=== PATIENT | female | born 1990 | race Caucasian/White ===

== ENCOUNTER → 2017-10-22 | Outpatient (CLI) | payer BC ==
--- NOTE | 2017-10-22 14:26 | Diagnostic Imaging Report ---
INDICATION: survey. TECHNIQUE: Multiple real-time grayscale images were obtained over the gravid uterus. COMPARISON: None. FINDINGS: A single live intrauterine fetus is seen measuring 20 weeks 2 days by composite measurements. The fetus is in cephalic presentation. Amniotic fluid appeared normal. The placenta was posterior with no evidence of previa. heart rate is 155 beats per minute. Cervical length is 6.1 cm. survey showed no detectable abnormalities with normal appearing bladder, stomach, ventricles, three vessel cord, and spine. The kidneys and four-chamber heart and cord insertion were not well seen due to positioning. Maternal ovaries were not visualized. Biometrical measurements are as follows: Biparietal 4.5 cm, age 19 weeks 6 days. Head circumference 17.57 cm, age 20 weeks 1 days. Abdominal circumference 15.41 cm, age 20 weeks 5 days. Femur length 3.23 cm, age 20 weeks 1 days. Sonographic estimate age: 20 weeks 2 days. Sonographic estimated date of delivery: 03/09/2018. Estimated Weight: 345 gm (+/- 50 gm). LMP percentile: 46%. heart rate: 155 beats per minute. number: 1 of 1. IMPRESSION: Single live intrauterine fetus measuring 20 weeks 2 days in size as described above. There were no detectable abnormalities although some of the structures were not able to be seen as above. Consider followup as clinically warranted. Dictated by: Dictated on workstation # [id number]
== END ==
LOC: RAD 12:53
PROVIDERS: ATTEND Obstetrics & Gynecology
DX: Z34.92 Encounter for supervision of normal pregnancy, unspecified, second trimester (principal); Z3A.20 20 weeks gestation of pregnancy
CPT/HCPCS: 76805

== ENCOUNTER → 2017-12-18 | Outpatient (CLI) | payer BC ==
--- NOTE | 2017-12-18 10:54 | Diagnostic Imaging Report ---
INDICATION: Z34.90 care. TECHNIQUE: Multiple real-time grayscale images were obtained over the gravid uterus. COMPARISON: 10/22/2017 FINDINGS: Single live intrauterine is identified with a heart rate of 158 beats per minute. Poorly visualized anatomy on the prior examination is now identified and appears grossly normal. The fetus is cephalic. The placenta is posterior and has a normal appearance. The visualized cervix is closed. IMPRESSION: Normal-appearing anatomy. No anomalies identified. Dictated by: Dictated on workstation # [id number]
== END ==
LOC: RAD 09:47
PROVIDERS: ATTEND Nurse Practitioner
DX: Z34.83 Encounter for supervision of other normal pregnancy, third trimester (principal); Z3A.28 28 weeks gestation of pregnancy
CPT/HCPCS: 76816

== ENCOUNTER 2018-02-24 11:26 | Inpatient (IN) | payer BC ==
[2018-02-24] VITALS (8 sets, daily range): BP systolic 126–147; BP diastolic 80–93
[~2018-02-24] VITALS: Ht 160 cm; Wt 138.8 kg
[2018-02-24] MEDS ORDERED: PREN1TAB86 PO (11:45)
[2018-02-24] MEDS ORDERED: FERR-84 PO (11:46)
[2018-02-24 11:57] LABS: BASOPHILS % (AUTO) 0 % (0-10); EOSINOPHILS # (AUTO) 0.1 10^3/uL (0.0-0.3); EOSINOPHILS % (AUTO) 1 % (0-10); HEMATOCRIT 32 % (35-52); HEMOGLOBIN 10.3 G/DL (11.5-16.0); LYMPHOCYTES # (AUTO) 1.4 X 10^3 (1.0-4.0); LYMPHOCYTES % (AUTO) 18 % (12-44); MEAN CORPUSCULAR HEMOGLOBIN 24 PG (25-34); MEAN CORPUSCULAR HGB CONC 32 G/DL (32-36); MEAN CORPUSCULAR VOLUME 74 FL (80-99); MEAN PLATELET VOLUME 10.5 FL (7.4-10.4); MONOCYTES # (AUTO) 0.5 X 10^3 (0.0-1.0); MONOCYTES % (AUTO) 6 % (0-12); NEUTROPHILS % (AUTO) 75 % (42-75); PLATELET COUNT 417 10^3/uL (130-400); RED BLOOD COUNT 4.36 10^6/uL (4.35-5.85); RED CELL DISTRIBUTION WIDTH 15.7 % (10.0-14.5)
[2018-02-24 12:18] LABS: ALANINE AMINOTRANSFERASE 13 U/L (0-55); ALBUMIN 3.2 GM/DL (3.2-4.5); ALKALINE PHOSPHATASE 127 U/L (40-136); BILIRUBIN,TOTAL 0.3 MG/DL (0.1-1.0); BUN/CREATININE RATIO 10; CALCIUM 9.2 MG/DL (8.5-10.1); CARBON DIOXIDE 21 MMOL/L (21-32); CHLORIDE 107 MMOL/L (98-107); CREATININE SERUM 0.71 MG/DL (0.60-1.30); GFR ESTIMATED > 60; GLUCOSE 90 MG/DL (70-105); POTASSIUM 4.1 MMOL/L (3.6-5.0); SODIUM 136 MMOL/L (135-145); TOTAL PROTEIN 6.5 GM/DL (6.4-8.2); URIC ACID 6.3 MG/DL (2.6-7.2)
[2018-02-24] MEDS ORDERED: ceFAZolin 2 GM IV Premixed 50 ML IV SCH (13:14)
[2018-02-24] MEDS ORDERED: D5 LR IV SOLUTION 1,000 ML IV SCH ×2 (13:14→15:56)
[2018-02-24] MEDS ORDERED: CATHETER FLUSH 10 ML SYR IV PRN ×2 (13:30)
[2018-02-24] MEDS ORDERED: CITRIC ACID/SOB CIT (BICITRA) 30 ML UDC PO ONE (13:30)
[2018-02-24] MEDS ORDERED: FAMOTIDINE 20MG/2ML IV (PEPCID) IV ONE (13:30)
[2018-02-24] MEDS ORDERED: METOCLOPRAMIDE INJ 10 MG/2 ML (REGLAN) IV ONE (13:30)
--- OUTSIDE RECORDS SUMMARY | 2018-02-24 13:36 | XMS REPORT | Continuity of Care Document ---
Author Author [facility] Address Unknown Phone Unavailable Allergies Active Description Code Type Severity Reaction Onset Reported/Identified Relationship to Patient Clinical Status Yes Penicillins [id number] Drug Allergy Moderate N/A Yes PENICILLINS N/A N/A 11/18/2014 Medications Medication Packaging Start Date Stop Date Route Dosage Sig FLUNISOLIDE 09/29/2014 05/24/2015 Nasal 25 MCG/ACT EACH NOSTRIL DAILY FLUNISOLIDE 05/24/2015 Nasal 25 MCG/ACT EACH NOSTRIL DAILY LACTATED RINGERS Solution 201504/23/2016 Intravenous 1EA CONT&0600 Oxytocin 30Units/NS500 ININF BAG 03/26/2016 Intravenous 1EA CONT&0600 Diinoprostone VAG INSERT INSERT 04/26/2016 Vaginal 10MG ONETIME&2130 LACTATED RINGERS Solution 201504/02/2016 Intravenous 1EA CONT&0500 Oxytocin 30Units/NS500 ININF BAG 03/30/2016 Intravenous 1EA CONT&0500 LACTATED RINGERS Solution 201504/28/2016 Intravenous 1EA CONT&0621 Acetamin/Cod Tab Tab 03/29/2016 04/28/2016 Oral 1TAB PRN Q 4 H& Naproxen TAB Tablet 03/29/2016 04/28/2016 Oral 500MG PRNX1 & Mag Al Plus UD Liquid 03/29/2016 04/28/2016 Oral 1DOSE PRN Q 2 H& Calcium Carb Roll of 8 Tab 201504/29/2016 Oral 750MG PRN Q 2 H& Mag Al Plus UD Liquid 03/30/2016 04/29/2016 Oral 1DOSE PRN Q 2 H& Problems Date Dx Coded Attending Type Code Diagnosis Diagnosed By 06/11/2015 Diana Pfeiffer V72.31 Routine gynecological examination 11/12/2015 Diana Pfeiffer V22.1 , routine visit 02/20/2016 Diana Pfeiffer 642.43 Mild pre-eclampsia, antepartum condition or complication 04/03/2016 Diana Pfeiffer F V24.2 follow-up visit 12/14/2016 F J01.10 Acute frontal sinusitis, unspecified 12/14/2016 F R19.7 Diarrhea, unspecified 10/28/2017 MACHADOTOMMY Peters DOA Liv Ot Z34.92 ENCNTR FOR SUPRVSN OF NORMAL PREG, UNSP, 10/28/2017 MACHADO DO PRIMO C Ot Z3A.20 20 WEEKS GESTATION OF 11/05/2017 MACHADO DO PRIMO C Ot Z34.92 ENCNTR FOR SUPRVSN OF NORMAL PREG, UNSP, 11/05/2017 MACHADO DO PRIMO C Ot Z3A.20 20 WEEKS GESTATION OF 12/21/2017 ALEX HINOJOSA APRICOT PACKER Ot Z34.83 ENCOUNTER FOR SUPRVSN OF NORMAL PREGNANC 12/21/2017 ALEX HINOJOSA APRICOT PACKER Ot Z3A.28 28 WEEKS GESTATION OF 12/30/2017 ALEX HINOJOSA APRICOT PACKER Ot Z34.83 ENCOUNTER FOR SUPRVSN OF NORMAL PREGNANC 12/30/2017 ALEX HINOJOSA APRICOT PACKER Ot Z3A.28 28 WEEKS GESTATION OF Procedures Code Description [place] [address] Preventive medicine, established patient, age 18-39 years 2014 OBCOMP OB Complaint 11/12/2015 83511 Office/outpatient visit; established patient, level 3 11/12/2015 OBCOMP OB Complaint 12/14/2015 OBCOMP OB Complaint 12/31/2015 OBCOMP OB Complaint 01/29/2016 OBCOMP OB Complaint 02/20/2016 OBCOMP OB Complaint 02/28/2016 OBCOMP OB Complaint 03/14/2016 OBCOMP OB Complaint 03/21/2016 Results Test Result Range OBSTETRIC PANEL - 10/23/15 08:30 VENIPUNCTURE DONE OBSTETRIC PANEL done done OB CBC - 10/23/15 08:30 HEMATOCRIT 35 % 36 - 48 HEMOGLOBIN 11.5 G/DL 11.6 - 15.6 MCH 25.6 PG/ML 26.0 - 34.0 MCHC 33.0 % 30.0 - 36.0 MCV 77.7 FL 80.0 - 100.0 MPV 10.2 FL 9.5 - 10.5 PLATELET AUTOMATED 289 1000/UL 130 - 400 RBC-CBC 4.49 [id number]/UL 3.80 - 5.50 RDW-CV 15.5 % 11.7 - 14.3 WBC-CBC 7.4 1000/UL 4.0 - 11.0 OB ANTIBODY SCREEN - 10/23/15 08:30 OB ANTIBODY SCREEN NEGATIVE NEGATIVE OB ABO - 10/23/15 08:30 OB ABO A OB RH - 10/23/15 08:30 OB RH POSITIVE OB RUBELLA - 10/23/15 08:30 OB RUBELLA POSITIVE IMMUNE AFP TETRA PROFILE - 10/23/15 08:30 [place] 1 [place] [address] DSR (SECOND TRIMESTER) 1 [place] [address] DSR (BY AGE) 1 IN 911 T18 RISK Not increased T18 (BY AGE) 1:3551 INTERPRETATION Comment COMMENTS: Comment RESULTS Report TEST RESULTS *Screen Negative* GEST. AGE ON COLLECTION DATE 17.1 WEEKS GESTAT. AGE BASED ON CARLOS MATERNAL [age] CARLOS 27.2 YEARS RACE WEIGHT 278 lbs INSULIN DEP DIABETES No MULTIPLE GESTATION No AFP VALUE 27.7 ng/mL AFP MoM 1.03 hCG VALUE 23127 mIU/mL hCG MoM 0.53 uE3 VALUE 1.22 ng/mL uE3 MoM 1.25 GENE VALUE 106.17 pg/mL GENE MoM 0.83 HEPATITIS B SURFACE ANTIGEN - 10/23/15 08:30 HEPATITIS B SURFACE ANTIGEN Negative Negative RPR - 10/23/15 08:30 RPR Non Reactive Non Reactive HIV-1, HIV-2 - 119628 - 10/23/15 08:30 HIV 1/0/2 INDEX VALUE ABS <1.00 <1.00 HIV 1/0/2 QUAL ABS Non Reactive Non Reactive HEMOGLOBIN , HEMATOCRIT - 12/31/15 07:50 HEMATOCRIT 33.5 % 36 - 48 HEMOGLOBIN 10.9 G/DL 11.6 - 15.6 GLUCOSE - 12/31/15 07:50 GLUCOSE 96 MG/DL 70 - 106 ANTIBODY SCREEN GEL - 12/31/15 07:50 ANTIBODY SCREEN GEL NEGATIVE NEGATIVE GLUCOSE (S) - 12/31/15 10:25 GLUCOSE (S) 95 MG/DL 70 - 106 STREP B SCREEN - 03/06/16 10:20 STREP B SCREEN Negative Negative URINALYSIS - 03/24/16 06:58 NITRITE Negative NEGATIVE UROBILINOGEN 0.2 E.U./dL EU/DL 0.2 COLOR UA Light yellow YELLOW CLARITY UA Clear CLEAR GLUCOSE, UR Negative NEGATIVE BILIRUBIN, UR Negative NEGATIVE KETONES UR Negative NEGATIVE SPECIFIC GRAVITY 1.010 SG 1.018 - 1.035 BLOOD, UR Negative NEGATIVE PH, UR 6.0 PH 5.0 - 6.0 PROTEIN, UR Negative NEGATIVE LEUKOCYTES ESTERASE Negative NEGATIVE WBC, UR NONE SEEN /HPF NONE SEEN RBC, UR 0-3 /HPF NONE SEEN EPITHELIAL CELLS 11-30 /HPF NONE SEEN BACTERIA UR 1+ /HPF NONE SEEN MUCOUS UR NONE SEEN /HPF NONE SEEN CASTS UR NONE SEEN NONE SEEN CRYSTALS UR NONE SEEN NONE SEEN CBC - 03/24/16 07:20 HEMATOCRIT 32.7 % 36 - 48 HEMOGLOBIN 10.6 G/DL 11.6 - 15.6 MCH 24.3 PG/ML 26.0 - 34.0 MCHC 32.4 % 30.0 - 36.0 MCV 74.8 FL 80.0 - 100.0 MPV 10.1 FL 9.5 - 10.5 PLATELET AUTOMATED 386 1000/uL 130 - 400 RBC-CBC 4.37 [id number]/UL 3.80 - 5.50 RDW-CV 15.3 % 11.7 - 14.3 VENIPUNCTURE DONE WBC-CBC 8.41 1000/uL 4.0 - 11.0 URINALYSIS - 03/27/16 21:30 NITRITE NEGATIVE NEGATIVE UROBILINOGEN 0.2 EU/DL 0.2 COLOR UA YELLOW YELLOW CLARITY UA CLEAR CLEAR GLUCOSE, UR NEGATIVE NEGATIVE BILIRUBIN, UR NEGATIVE NEGATIVE KETONES UR NEGATIVE NEGATIVE SPECIFIC GRAVITY 1.010 SG 1.018 - 1.035 BLOOD, UR NEGATIVE NEGATIVE PH, UR 7.0 PH 5.0 - 6.0 PROTEIN, UR NEGATIVE NEGATIVE LEUKOCYTES ESTERASE NEGATIVE NEGATIVE WBC, UR NONE SEEN /HPF NONE SEEN RBC, UR NONE SEEN /HPF NONE SEEN EPITHELIAL CELLS 31-75 /HPF NONE SEEN BACTERIA UR NONE SEEN /HPF NONE SEEN MUCOUS UR NONE SEEN /HPF NONE SEEN CASTS UR NONE SEEN NONE SEEN CRYSTALS UR NONE SEEN NONE SEEN CBC - 03/28/16 07:59 HEMATOCRIT 34.2 % 36 - 48 HEMOGLOBIN 10.9 G/DL 11.6 - 15.6 MCH 24.0 PG/ML 26.0 - 34.0 MCHC 31.9 % 30.0 - 36.0 MCV 75.2 FL 80.0 - 100.0 MPV 10.1 FL 9.5 - 10.5 PLATELET AUTOMATED 374 1000/uL 130 - 400 RBC-CBC 4.55 [id number]/UL 3.80 - 5.50 RDW-CV 15.6 % 11.7 - 14.3 VENIPUNCTURE DONE WBC-CBC 8.87 1000/uL 4.0 - 11.0 PLATELET AUTOMATED - 03/28/16 21:45 PLATELET AUTOMATED 390 1000/uL 130 - 400 VENIPUNCTURE DONE APTT - 03/28/16 21:45 APTT 26.1 SEC 22 - 31 PROTIME W/INR - 03/28/16 21:45 INR .91 . 0.9 - 1.1 PROTIME 9.3 SEC 9.3 - 11.3 HEMOGLOBIN , HEMATOCRIT - 03/29/16 11:37 HEMATOCRIT 29.4 % 36 - 48 HEMOGLOBIN 9.5 G/DL 11.6 - 15.6 VENIPUNCTURE DONE URINALYSIS - 03/29/16 20:00 NITRITE Negative NEGATIVE UROBILINOGEN 0.2 E.U./dL EU/DL 0.2 COLOR UA Light yellow YELLOW CLARITY UA Clear CLEAR GLUCOSE, UR Negative NEGATIVE BILIRUBIN, UR Negative NEGATIVE KETONES UR Negative NEGATIVE SPECIFIC GRAVITY 1.004 SG 1.018 - 1.035 BLOOD, UR 3+ NEGATIVE PH, UR 5.5 PH 5.0 - 6.0 PROTEIN, UR 1+ NEGATIVE LEUKOCYTES ESTERASE 1+ NEGATIVE WBC, UR 0-5 /HPF NONE SEEN RBC, UR 4-10 /HPF NONE SEEN EPITHELIAL CELLS 0-2 /HPF NONE SEEN BACTERIA UR TRACE /HPF NONE SEEN MUCOUS UR LIGHT /HPF NONE SEEN CASTS UR NONE SEEN NONE SEEN CRYSTALS UR NONE SEEN NONE SEEN HEMOGLOBIN , HEMATOCRIT - 03/30/16 07:41 HEMATOCRIT 27.8 % 36 - 48 HEMOGLOBIN 8.8 G/DL 11.6 - 15.6 VENIPUNCTURE DONE Encounters ACCT No. Visit Date/Time Discharge Status Pt. Type Provider Facility Loc./Unit Complaint [id number] 09/17/2015 14:21:00 09/17/2015 23:59:59 [facility] Outpatient [facility] [id number] 09/11/2014 11:04:00 09/11/2014 23:59:59 [facility] Outpatient [facility] [id number] 03/27/2016 21:00:00 03/30/2016 16:30:00 DIS Inpatient DIANA PFEIFFER [facility] OB [id number] 03/24/2016 06:55:00 03/24/2016 20:50:00 DIS Inpatient MARGARETTE [facility] OB [id number] 03/21/2016 16:23:00 03/21/2016 17:05:00 [id number] 03/13/2016 09:15:00 03/13/2016 10:00:00 [id number] 03/06/2016 09:45:00 03/06/2016 11:00:00 [id number] 12/31/2015 07:37:00 12/31/2015 10:37:00 DIS Outpatient MARGARETTE [facility] LAB [id number] 12/14/2015 09:30:00 12/14/2015 12:30:00 [id number]/23/2015 08:18:00 10/23/2015 11:18:00 DIS Outpatient MARGARETTE [facility] LAB [id number] 10/12/2015 12:30:00 10/12/2015 15:30:00 [id number] 12/14/2016 15:54:00 12/14/2016 23:59:59 CLS Outpatient [facility] [id number] 12/14/2016 17:12:00 Document Registration [id number] 04/03/2016 12:48:37 04/03/2016 14:29:56 DIS Outpatient Diana Pfeiffer [facility] [id number] 09/28/2015 16:21:59 09/28/2015 16:21:59 DIS Outpatient [id number] 12/18/2017 09:47:00 12/18/2017 23:59:59 CLS Outpatient ALEX HINOJOSA [facility] RAD Z34.90 CARE [id number] 10/22/2017 12:53:00 10/22/2017 23:59:59 CLS Outpatient PRIMO MACHADO DO [facility] RAD SUVEY [id number] 03/02/2018 08:00:00 PEN Preadmit PRIMO MACHADO DO PREVIOUS
[2018-02-24] MEDS ORDERED: LACTATED RINGERS 1,000 ML IV PRN ×2 (13:52)
[2018-02-24] MEDS ORDERED: CATHETER FLUSH 10 ML SYR IV SCH ×2 (14:00→22:00)
[2018-02-24] MEDS ORDERED: KETAMINE HCL 100 MG/ML 5 ML VIAL ONE (14:12)
[2018-02-24] MEDS ORDERED: ONDANSETRON 4 MG/2 ML (SDV) Z0FRAN ONE (14:12)
[2018-02-24] MEDS ORDERED: OXYTOCIN/NORMAL SALINE 1,000 ML IV ONE (14:12)
[2018-02-24] MEDS ORDERED: fentaNYL INJECTION 100 MCG/2 ML AMP ONE (14:13)
[2018-02-24] MEDS ORDERED: raNItidine 50 MG/2 ML INJ (ZANTAC) IV ONE (14:15)
--- NOTE | 2018-02-24 15:02 | Progress Note-Pre Operative ---
Pre-Operative Progress Note H&P Reviewed The H&P was reviewed, patient examined and no changes noted. Laboratory Tests Test 02/24/18 10:00 02/24/18 11:45 Range/Units Urine Protein 28 H 6-12 MG/DL Urine Creatinine 119 30-125 MG/DL Urine Protein/Creatinine Ratio 0.24 White Blood Count 8.0 4.3-11.0 10^3/uL Red Blood Count 4.36 4.35-5.85 10^6/uL Hemoglobin 10.3 L 11.5-16.0 G/DL Hematocrit 32 L 35-52 % Mean Corpuscular Volume 74 L 80-99 FL Mean Corpuscular Hemoglobin 24 L 25-34 PG Mean Corpuscular Hemoglobin Concent 32 32-36 G/DL Red Cell Distribution Width 15.7 H 10.0-14.5 % Platelet Count 417 H 130-400 10^3/uL Mean Platelet Volume 10.5 H 7.4-10.4 FL Neutrophils (%) (Auto) 75 42-75 % Lymphocytes (%) (Auto) 18 12-44 % Monocytes (%) (Auto) 6 0-12 % Eosinophils (%) (Auto) 1 0-10 % Basophils (%) (Auto) 0 0-10 % Neutrophils # (Auto) 6.0 1.8-7.8 X 10^3 Lymphocytes # (Auto) 1.4 1.0-4.0 X 10^3 Monocytes # (Auto) 0.5 0.0-1.0 X 10^3 Eosinophils # (Auto) 0.1 0.0-0.3 10^3/uL Basophils # (Auto) 0.0 0.0-0.1 10^3/uL Sodium Level 136 135-145 MMOL/L Potassium Level 4.1 3.6-5.0 MMOL/L Chloride Level 107 98-107 MMOL/L Carbon Dioxide Level 21 21-32 MMOL/L Anion Gap 8 5-14 MMOL/L Blood Urea Nitrogen 7 7-18 MG/DL Creatinine 0.71 0.60-1.30 MG/DL Estimat Glomerular Filtration Rate > 60 BUN/Creatinine Ratio 10 Glucose Level 90 70-105 MG/DL Uric Acid 6.3 2.6-7.2 MG/DL Calcium Level 9.2 8.5-10.1 MG/DL Total Bilirubin 0.3 0.1-1.0 MG/DL Aspartate Amino Transf (AST/SGOT) 13 5-34 U/L Alanine Aminotransferase (ALT/SGPT) 13 0-55 U/L Alkaline Phosphatase 127 40-136 U/L Lactate Dehydrogenase 156 125-220 U/L Total Protein 6.5 6.4-8.2 GM/DL Albumin 3.2 3.2-4.5 GM/DL 02/24/18 02/24/18 02/24/18 02/24/18 11:07 11:11 11:47 12:12 Temp 98.5 Pulse 88 93 81 Resp 20 18 18 B/P (MAP) 139/93 (108) 137/82 (100) 133/84 (100) 143/85 (104) Pulse Ox 98 O2 Delivery Room Air Room Air Room Air 02/24/18 12:45 Pulse 90 Resp 18 B/P (MAP) 138/83 (101) O2 Delivery Room Air Date Seen by Provider: Feb 24, 2018 Time Seen by Provider: 11:00 Date H&P Reviewed: Feb 24, 2018 Time H&P Reviewed: 14:30 Pre-Operative Diagnosis: gestational hypertension, previous section, headache. PRIMO MACHADO DO Feb 24, 2018 15:02
[2018-02-24] MEDS ORDERED: KETOROLAC 30 MG/ML VIAL ONE ×2 (15:45→15:46)
[2018-02-24] MEDS ORDERED: OXYTOCIN/NORMAL SALINE 500 ML IV SCH (15:56)
--- NOTE | 2018-02-24 15:56 | Cesarean Section Operative ---
Procedure Procedure Note Pre-operative Diagnosis: Jazmine Menjivar is a 28 /Para 2 / 1,Gestational Age 38 1/7 weeks, gestational hypertension, headache, previous section Post-operative Diagnosis: same Procedure: Repeat low transverse section Physician: PRIMO MACHADO Estimated blood loss: 600 mL Disposition: stable Findings: Viable male infant, Apgars 8/9, weight 8#1 oz, intact placenta, 3vc, normal appearing uterus, tubes, and ovaries. Indications:Jazmine Menjivar is a 28 /Para 2 / 1,Gestational Age 38 1/7 weeks, gestational hypertension, headache, previous section. Procedure Details: The patient was seen in pre-op and the procedure was discussed with the patient in full, including the risks, benefits, and alternatives. All questions were answered. The patient was taken to the operating room and a time out was performed, verifying patient and procedure. After spinal anesthesia was placed by our anesthesia colleagues, the patient was placed in the dorsal supine with leftward tilt for uterine displacement.~ Her abdomen was then prepped and draped in the typical sterile fashion. A Pfannenstiel skin incision was made using a scalpel and carried down through the underlying fascia. The fascia was incised in the midline and tented up using Cristiana clamps. On both the inferior and superior fascia side the rectus muscle was dissected off bluntly and sharply using Grady scissors. The peritoneum was identified and entered bluntly in the midline. This was then stretched laterally using manual strength. After entering the abdominal cavity and noting omental adhesions to the anterior abdominal wall, (not interfering with delivery) an extra large Armando retractor was placed and the lower uterine segment was visualized. A scalpel was utilized to make a low transverse uterine incision. Amniotomy was performed with an Allis clamp with return of clear fluid. The infant's head was grasped and brought to the level of the incision and delivered with assistance of the silastic suction. Fundal pressure was applied and infant was delivered without difficulty. Mouth and nares were suctioned with bulb suction. After the umbilical cord was clamped and cut, the was handed off to the pediatric staff. A sample of cord blood was then obtained. The placenta was delivered intact via uterine massage. The uterus was cleared of all clots and debris. The uterine incision was closed using 0 Vicryl in a running locked fashion. A second imbricated layer was placed using 0 Vicryl in a running fashion as well. The bilateral tubes and ovaries appeared normal. The abdominal gutters were cleared of all clots and debris. A final check of the uterine incision showed it to be hemostatic. I now took down the omental adhesions that were adherent to the abdominal wall. This interfered with closure. There was also a hole through the omentum due to the adhesions, and once these were taken down, there was no longer a hole. The peritoneum was closed using 3-0 Vicryl in a running fashion. The fascia was closed with 0 Vicryl in a running fashion. The subcutaneous space was hemostatic, and irrigated. The subcutaneous space was closed with 3-0 Vicryl in several single interrupted stitches. The skin was then closed using 4-0 Monocryl in a running subcuticular fashion. The skin edges were reapproximated together and were hemostatic. A pressure dressing was applied. All sponge, lap and needle counts were correct at the end of the procedure per nursing. Vitals - Labs Vital Signs - I&O Vital Signs Date Time Temp Pulse Resp B/P (MAP) Pulse Ox O2 Delivery O2 Flow Rate FiO2 02/24/18 12:45 90 18 138/83 (101) Room Air 02/24/18 12:12 81 18 143/85 (104) Room Air 02/24/18 11:47 93 18 133/84 (100) Room Air 02/24/18 11:11 137/82 (100) 02/24/18 11:07 98.5 88 20 139/93 (108) 98 Room Air Labs Laboratory Tests 02/24/18 10:00: Urine Protein 28H, Urine Creatinine 119, Urine Protein/Creatinine Ratio 0.24 02/24/18 11:45: White Blood Count 8.0, Red Blood Count 4.36, Hemoglobin 10.3L, Hematocrit 32L, Mean Corpuscular Volume 74L, Mean Corpuscular Hemoglobin 24L, Mean Corpuscular Hemoglobin Concent 32, Red Cell Distribution Width 15.7H, Platelet Count 417H, Mean Platelet Volume 10.5H, Neutrophils (%) (Auto) 75, Lymphocytes (%) (Auto) 18 , Monocytes (%) (Auto) 6, Eosinophils (%) (Auto) 1, Basophils (%) (Auto) 0, Neutrophils # (Auto) 6.0, Lymphocytes # (Auto) 1.4, Monocytes # (Auto) 0.5, Eosinophils # (Auto) 0.1, Basophils # (Auto) 0.0, Sodium Level 136, Potassium Level 4.1, Chloride Level 107, Carbon Dioxide Level 21, Anion Gap 8, Blood Urea Nitrogen 7, Creatinine 0.71, Estimat Glomerular Filtration Rate > 60, BUN/ Creatinine Ratio 10, Glucose Level 90, Uric Acid 6.3, Calcium Level 9.2, Total Bilirubin 0.3, Aspartate Amino Transf (AST/SGOT) 13, Alanine Aminotransferase ( ALT/SGPT) 13, Alkaline Phosphatase 127, Lactate Dehydrogenase 156, Total Protein 6.5, Albumin 3.2 PRIMO MACHADO DO Feb 24, 2018 15:56
[2018-02-24] MEDS ORDERED: TETANUS,DIPTH,PERTUSS P/F (BOOSTRIX) 0.5 ML VIAL IM SCH (16:00)
[2018-02-24] MEDS ORDERED: HYDROmorphone (DILAUDID) 2 MG/ML VIAL IVP PRN (16:00)
[2018-02-24] MEDS ORDERED: MEASLES,MUMPS,RUBELLA 1 EA INJ SC SCH (16:00)
[2018-02-24] MEDS: DOCUSATE SODIUM 100 MG (COLACE) CAP PO SCH (21:25)
[2018-02-24] MEDS: KETOROLAC 30 MG/ML VIAL IVP SCH (21:25)
[2018-02-24] MEDS ORDERED: EPIDURAL (SUFENTA 0.6MCG/ML BUPIVA 0.125%) 100 ML BAG EPI PRN (23:15)
[2018-02-24] MEDS ORDERED: ONDANSETRON 4 MG/2 ML (SDV) Z0FRAN IV PRN (23:15)
[2018-02-24] MEDS ORDERED: NALOXONE 0.4 MG/ML 1 ML (NARCAN) VIAL IV PRN (23:15)
[2018-02-24] MEDS ORDERED: LACTATED RINGERS 1,000 ML IV ONE ×2 (23:15)
[2018-02-25] MEDS: HYDROcodone/APAP 5 MG/325 MG (LORTAB) TAB PO PRN ×3 (01:17→23:11)
[2018-02-25 02:08] VITALS: BP 124/77
[2018-02-25 05:46] LABS: BASOPHILS % (AUTO) 0 % (0-10); EOSINOPHILS % (AUTO) 0 % (0-10); HEMATOCRIT 26 % (35-52); HEMOGLOBIN 8.2 G/DL (11.5-16.0); LYMPHOCYTES # (AUTO) 1.8 X 10^3 (1.0-4.0); LYMPHOCYTES % (AUTO) 22 % (12-44); MEAN CORPUSCULAR HEMOGLOBIN 23 PG (25-34); MEAN CORPUSCULAR HGB CONC 31 G/DL (32-36); MEAN CORPUSCULAR VOLUME 75 FL (80-99); MEAN PLATELET VOLUME 10.7 FL (7.4-10.4); MONOCYTES # (AUTO) 0.5 X 10^3 (0.0-1.0); MONOCYTES % (AUTO) 6 % (0-12); NEUTROPHILS % (AUTO) 72 % (42-75); PLATELET COUNT 361 10^3/uL (130-400); RED BLOOD COUNT 3.51 10^6/uL (4.35-5.85); RED CELL DISTRIBUTION WIDTH 15.2 % (10.0-14.5); WHITE BLOOD COUNT 8.4 10^3/uL (4.3-11.0)
--- NOTE | 2018-02-25 08:45 | Postpartum Progress Note ---
Post Op Post-operative Day #1 s/p RLTCS, gestational hypertension Subjective: Patient is without complaints. Ambulating, voiding after shelton removed. Tolerating a regular diet without nausea or vomiting. Normal lochia. Pain is well controlled with oral pain medications. Passing flatus. breast feeding. Objective: Laboratory Tests Test 02/24/18 10:00 02/24/18 11:45 02/25/18 05:10 Range/Units Urine Protein 28 H 6-12 MG/DL Urine Creatinine 119 30-125 MG/DL Urine Protein/Creatinine Ratio 0.24 White Blood Count 8.0 8.4 4.3-11.0 10^3/uL Red Blood Count 4.36 3.51 L 4.35-5.85 10^6/uL Hemoglobin 10.3 L 8.2 #L 11.5-16.0 G/DL Hematocrit 32 L 26 L 35-52 % Mean Corpuscular Volume 74 L 75 L 80-99 FL Mean Corpuscular Hemoglobin 24 L 23 L 25-34 PG Mean Corpuscular Hemoglobin Concent 32 31 L 32-36 G/DL Red Cell Distribution Width 15.7 H 15.2 H 10.0-14.5 % Platelet Count 417 H 361 130-400 10^3/uL Mean Platelet Volume 10.5 H 10.7 H 7.4-10.4 FL Neutrophils (%) (Auto) 75 72 42-75 % Lymphocytes (%) (Auto) 18 22 12-44 % Monocytes (%) (Auto) 6 6 0-12 % Eosinophils (%) (Auto) 1 0 0-10 % Basophils (%) (Auto) 0 0 0-10 % Neutrophils # (Auto) 6.0 6.0 1.8-7.8 X 10^3 Lymphocytes # (Auto) 1.4 1.8 1.0-4.0 X 10^3 Monocytes # (Auto) 0.5 0.5 0.0-1.0 X 10^3 Eosinophils # (Auto) 0.1 0.0 0.0-0.3 10^3/uL Basophils # (Auto) 0.0 0.0 0.0-0.1 10^3/uL Sodium Level 136 135-145 MMOL/L Potassium Level 4.1 3.6-5.0 MMOL/L Chloride Level 107 98-107 MMOL/L Carbon Dioxide Level 21 21-32 MMOL/L Anion Gap 8 5-14 MMOL/L Blood Urea Nitrogen 7 7-18 MG/DL Creatinine 0.71 0.60-1.30 MG/DL Estimat Glomerular Filtration Rate > 60 BUN/Creatinine Ratio 10 Glucose Level 90 70-105 MG/DL Uric Acid 6.3 2.6-7.2 MG/DL Calcium Level 9.2 8.5-10.1 MG/DL Total Bilirubin 0.3 0.1-1.0 MG/DL Aspartate Amino Transf (AST/SGOT) 13 5-34 U/L Alanine Aminotransferase (ALT/SGPT) 13 0-55 U/L Alkaline Phosphatase 127 40-136 U/L Lactate Dehydrogenase 156 125-220 U/L Total Protein 6.5 6.4-8.2 GM/DL Albumin 3.2 3.2-4.5 GM/DL 02/24/18 02/25/18 21:30 02:08 Temp 97.6 98.4 Pulse 94 98 Resp 18 18 B/P (MAP) 134/86 (102) 124/77 (93) Pulse Ox 97 97 O2 Delivery Room Air Room Air 02/25/18 00:00 Intake Total 2550 ml Output Total 1100 ml Balance 1450 ml Physical Exam: General - Alert and oriented, no apparent distress Abdomen - Soft, appropriately tender to palpation, non-distended, fundus firm at umbilicus Incision - clean, dry and intact; no erythema or induration, no drainage Extremities - no edema, negative Betty's bilaterally Assessment: 1. post-operative day # 1, status post RLTCS. Recovering well, hemodynamically stable 2. Gestational hypertension, labile blood pressures 3. Acute blood loss anemia Plan: Routine post-operative care. Encourage breast feeding. Encourage ambulation. VTE prophylaxis: SCDs. Ferrous sulfate supplementation. Plan for discharge Tomorrow or Thursday Vitals - Labs Vital Signs - I&O Vital Signs Date Time Temp Pulse Resp B/P (MAP) Pulse Ox O2 Delivery O2 Flow Rate FiO2 02/25/18 02:08 98.4 98 18 124/77 (93) 97 Room Air 02/24/18 21:30 97.6 94 18 134/86 (102) 97 Room Air 02/24/18 18:58 Room Air 02/24/18 18:00 97.9 95 20 126/80 (95) Room Air 02/24/18 17:15 99.2 90 18 147/90 (109) 99 Room Air 02/24/18 14:05 98.9 02/24/18 12:45 90 18 138/83 (101) Room Air 02/24/18 12:12 81 18 143/85 (104) Room Air 02/24/18 11:47 93 18 133/84 (100) Room Air 02/24/18 11:11 137/82 (100) 02/24/18 11:07 98.5 88 20 139/93 (108) 98 Room Air I & O 02/25/18 07:00 Intake Total 5550 ml Output Total 3050 ml Balance 2500 ml Labs Laboratory Tests 02/24/18 10:00: Urine Protein 28H, Urine Creatinine 119, Urine Protein/Creatinine Ratio 0.24 02/24/18 11:45: White Blood Count 8.0, Red Blood Count 4.36, Hemoglobin 10.3L, Hematocrit 32L, Mean Corpuscular Volume 74L, Mean Corpuscular Hemoglobin 24L, Mean Corpuscular Hemoglobin Concent 32, Red Cell Distribution Width 15.7H, Platelet Count 417H, Mean Platelet Volume 10.5H, Neutrophils (%) (Auto) 75, Lymphocytes (%) (Auto) 18 , Monocytes (%) (Auto) 6, Eosinophils (%) (Auto) 1, Basophils (%) (Auto) 0, Neutrophils # (Auto) 6.0, Lymphocytes # (Auto) 1.4, Monocytes # (Auto) 0.5, Eosinophils # (Auto) 0.1, Basophils # (Auto) 0.0, Sodium Level 136, Potassium Level 4.1, Chloride Level 107, Carbon Dioxide Level 21, Anion Gap 8, Blood Urea Nitrogen 7, Creatinine 0.71, Estimat Glomerular Filtration Rate > 60, BUN/ Creatinine Ratio 10, Glucose Level 90, Uric Acid 6.3, Calcium Level 9.2, Total Bilirubin 0.3, Aspartate Amino Transf (AST/SGOT) 13, Alanine Aminotransferase ( ALT/SGPT) 13, Alkaline Phosphatase 127, Lactate Dehydrogenase 156, Total Protein 6.5, Albumin 3.2 02/25/18 05:10: White Blood Count 8.4, Red Blood Count 3.51L, Hemoglobin 8.2#L, Hematocrit 26L, Mean Corpuscular Volume 75L, Mean Corpuscular Hemoglobin 23L, Mean Corpuscular Hemoglobin Concent 31L, Red Cell Distribution Width 15.2H, Platelet Count 361, Mean Platelet Volume 10.7H, Neutrophils (%) (Auto) 72, Lymphocytes (%) (Auto) 22 , Monocytes (%) (Auto) 6, Eosinophils (%) (Auto) 0, Basophils (%) (Auto) 0, Neutrophils # (Auto) 6.0, Lymphocytes # (Auto) 1.8, Monocytes # (Auto) 0.5, Eosinophils # (Auto) 0.0, Basophils # (Auto) 0.0 PRIMO MACHADO DO Feb 25, 2018 08:45
[2018-02-25] MEDS ORDERED: IBUP-1773 PO (08:47)
[2018-02-25] MEDS ORDERED: ACHD5005 PO (08:47)
[2018-02-25] MEDS ORDERED: DOCU100C37 PO (08:47)
--- NOTE | 2018-02-25 08:49 | Discharge Inst-Women's Service ---
Discharge Inst-Women's Serv Depart Medication/Instructions New, Converted or Re-Newed RX: RX on Chart Final Diagnosis gestational hypertension repeat section antepartum and acute blood loss anemia Repeat section Consults/Follow Up Additional Follow Up: Yes (1 week with Jenn for incision check; 6 week pp exam) Activity Activity: Activity as Tolerated Driving Instructions: No Driving for 1 Week NO SMOKING: NO SMOKING Nothing Inside Vagina: No Douching, No [place], No Tampons Diet Discharge Diet: No Restrictions Symptoms to Report to : Bleeding Excessive, Pain Increased, Fever Over 101 Degrees F, Vaginal Bleeding Increase, Cramps in Feet or Legs, Vaginal Discharge Foul For Any Problems or Questions: Contact Your Physician Skin/Wound Care Infection Signs and Symptoms: Increased Redness, Foul Odor of Wound, Increased Drainage, Skin Itchy or Has a Rash, Increased Swelling, Temperature Above 101 F Operative Area Clean and Dry: Keep Incision Clean/Dry Stitches/Anastasiia/Dermabond: Dermabond Bathing Instructions: PRIMO Rodriguez DO Feb 25, 2018 8:48 am
[2018-02-25] MEDS ORDERED: IBUPROFEN 600 MG (MOTRIN) TAB PO ONE (09:15)
[2018-02-25] MEDS: FERROUS SULF 325 MG (IRON) TAB PO SCH (09:22)
[2018-02-25] MEDS: DOCUSATE SODIUM 100 MG (COLACE) CAP PO SCH ×2 (09:22→20:25)
[2018-02-25] MEDS: IBUPROFEN 600 MG (MOTRIN) TAB PO SCH ×3 (09:23→23:47)
--- NOTE | 2018-02-25 11:36 | Anesthesia-Regional Post-Op ---
Regional Patient Condition Mental Status: Alert, Oriented x3 Circulation: Same as Pre-Op Headache: Absent Sensation: Full Recovery Motor Block: Absent Post Op Complications Complications None Follow Up Care/Instructions Patient Instructions None needed. Anesthesia/Patient Condition Patient is doing well, no complaints, stable vital signs, no apparent adverse anesthesia problems. No complications reported per nursing. RENARD BAUER CRNA Feb 25, 2018 11:36
[2018-02-25 14:10] VITALS: BP 130/77
[2018-02-25 20:15] VITALS: BP 121/74
[2018-02-25] MEDS: KETOROLAC 30 MG/ML VIAL IVP SCH (22:01)
[2018-02-26 02:00] VITALS: BP 133/79
[2018-02-26] MEDS: IBUPROFEN 600 MG (MOTRIN) TAB PO SCH ×2 (05:34→16:45)
[2018-02-26] MEDS: DOCUSATE SODIUM 100 MG (COLACE) CAP PO SCH (08:34)
[2018-02-26] MEDS: FERROUS SULF 325 MG (IRON) TAB PO SCH (08:34)
[2018-02-26 08:35] VITALS: BP 137/88
--- NOTE | 2018-02-26 13:07 | Postpartum Progress Note ---
Post Op Post-operative Day # 2 s/p RLCTS Subjective: Patient is without complaints. Ambulating, voiding after shelton removed. Tolerating a regular diet without nausea or vomiting. Normal lochia. Pain is well controlled with oral pain medications. Passing flatus. breast feeding. Objective: 02/26/18 02/26/18 02:00 08:35 Temp 97.8 98.3 Pulse 111 95 Resp 18 20 B/P (MAP) 133/79 (97) 137/88 (104) Pulse Ox 97 O2 Delivery Room Air Room Air Physical Exam: General - Alert and oriented, no apparent distress Abdomen - Soft, appropriately tender to palpation, non-distended, fundus firm at umbilicus Incision - clean, dry and intact; no erythema or induration, no drainage Extremities - no edema, negative Betty's bilaterally Assessment: [] post-operative day # [], status post []. Recovering well, hemodynamically stable Acute blood loss anemia [] Plan: Routine post-operative care. Encourage breast feeding. Encourage ambulation. VTE prophylaxis: SCDs. Ferrous sulfate supplementation. Plan for discharge [] Vitals - Labs Vital Signs - I&O Vital Signs Date Time Temp Pulse Resp B/P (MAP) Pulse Ox O2 Delivery O2 Flow Rate FiO2 02/26/18 08:35 98.3 95 20 137/88 (104) Room Air 02/26/18 02:00 97.8 111 18 133/79 (97) 97 Room Air 02/25/18 20:15 97.8 96 18 121/74 (90) 98 Room Air 02/25/18 14:10 97.6 96 17 130/77 (94) 97 Room Air I & O 02/26/18 06:59 Intake Total 1200 ml Output Total 1900 ml Balance -700 ml PRIMO MACHADO DO Feb 26, 2018 13:07
== END 2018-02-26 17:05 | disposition home or self-care (01) | DRG 765 ==
LOC: LDRP 11:26 → WSo 11:26 → LDRP 13:00 → WSo 13:00 → LDRP 17:26
PROVIDERS: ADMIT Obstetrics & Gynecology; ATTEND Obstetrics & Gynecology
PROC: 10D00Z1 Extraction of Products of Conception, Low, Open Approach (ICD-10-PCS; principal; 2018-02-24 15:02)
DX: O13.4 Gestational [pregnancy-induced] hypertension without significant proteinuria, complicating childbirth (principal); O34.211 Maternal care for low transverse scar from previous cesarean delivery; O75.89 Other specified complications of labor and delivery; R51 Headache; O90.81 Anemia of the puerperium; D62 Acute posthemorrhagic anemia; Z37.0 Single live birth; Z3A.38 38 weeks gestation of pregnancy
CPT/HCPCS: 36415; 80053; 82570; 83615; 84156; 84550; 85025; 86850; 86900; 86901; 94664; 99212

== ENCOUNTER 2019-03-19 21:49 | Emergency (ER) | payer BC ==
[~2019-03-19] VITALS: Ht 157.5 cm; Wt 145.1 kg
[~2019-03-19 21:49] MED LIST: ACHD5005 PO; DOCU100C37 PO; FERR-84 PO; IBUP-1773 PO; PREN1TAB86 PO
--- OUTSIDE RECORDS SUMMARY | 2019-03-19 21:55 | XMS REPORT | Continuity of Care Document ---
Author Organization Unknown Address Unknown Allergies Active Description Code Type Severity Reaction Onset Reported/Identified Relationship to Patient Clinical Status Yes Penicillins 9057752119 Drug Allergy Moderate N/A Yes PENICILLINS N/A N/A 11/18/2014 Yes pcn pcn Mild RASH 02/24/2018 Medications Medication Packaging Start Date Stop Date [...] V22.1 , routine visit 02/20/2016 Diana Pfeiffer F 642.43 Mild pre-eclampsia, antepartum condition or complication 04/03/2016 DavidDiana lee F V24.2 follow-up visit 12/14/2016 F J01.10 Acute frontal sinusitis, unspecified 12/14/2016 F R19.7 Diarrhea, unspecified 10/28/2017 PRIMO MACHADO DO Ot Z34.92 ENCNTR FOR SUPRVSN OF NORMAL PREG, UNSP, 10/28/2017 PRIMO MACHADO DO Ot Z3A.20 20 WEEKS GESTATION OF 11/05/2017 PRIMO MACHADO DO Ot Z34.92 ENCNTR FOR SUPRVSN OF NORMAL PREG, UNSP, 11/05/2017 PRIMO MACHADO DO Ot Z3A.20 20 WEEKS GESTATION OF 12/21/2017 ALEX HINOJOSA Ot Z34.83 ENCOUNTER FOR SUPRVSN OF NORMAL PREGNANC 12/21/2017 ALEX HINOJOSAP Ot Z3A.28 28 WEEKS GESTATION OF 12/30/2017 ALEX HINOJOSAP Ot Z34.83 ENCOUNTER FOR SUPRVSN OF NORMAL PREGNANC 12/30/2017 ALEX 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 Z3A.28 28 WEEKS GESTATION OF 02/26/2018 PRIMO MACHADO DO Ot D62 ACUTE POSTHEMORRHAGIC ANEMIA 02/26/2018 PRIMO MACHADO DO Ot O13.4 GESTATNL HTN WITHOUT SIGNIFICANT PROTEIN 02/26/2018 PRIMO MACHADO DO Ot O34.211 MATERN CARE FOR LOW TRANSVERSE SCAR FROM 02/26/2018 PRIMO MACHADO DO Ot O75.89 OTHER SPECIFIED COMPLICATIONS OF LABOR A 02/26/2018 PRIMO MACHADO DO Ot O90.81 ANEMIA OF THE PUERPERIUM 02/26/2018 PRIMO MACHADO DO Ot R51 HEADACHE 02/26/2018 PRIMO MACHADO DO Ot Z37.0 SINGLE LIVE 02/26/2018 PRIMO MACHADO DO Ot Z3A.38 38 WEEKS GESTATION OF Procedures Code Description [place] [address] Preventive medicine, established patient, age 18-39 years 2014 OBCOMP OB Complaint 11/12/2015 06596 Office/outpatient visit; established patient, level 3 11/12/2015 OBCOMP OB Complaint 12/14/2015 OBCOMP OB Complaint 12/31/2015 OBCOMP OB Complaint 01/29/2016 OBCOMP OB Complaint 02/20/2016 OBCOMP OB Complaint 02/28/2016 OBCOMP OB Complaint 03/14/2016 OBCOMP OB Complaint 03/21/2016 [id number] EXTRACTION OF POC, LOW CERVICAL, OPEN AP 02/24/2018 Results Test Result Range OBSTETRIC PANEL - [...] 289 1000/UL 130 - 400 RBC-CBC 4.49 [id number]/UL 3.80 - 5.50 RDW-CV 15.5 % 11.7 - 14.3 WBC-CBC 7.4 1000/UL 4.0 - 11.0 OB ANTIBODY SCREEN - 10/23/15 08:30 OB ANTIBODY SCREEN NEGATIVE NEGATIVE OB ABO - 10/23/15 08:30 OB ABO A OB RH - 10/23/15 08:30 OB RH POSITIVE OB RUBELLA - 10/23/15 08:30 OB RUBELLA POSITIVE IMMUNE AFP TETRA PROFILE - 10/23/15 08:30 OSBR RISK 1 [place] [address] DSR (SECOND TRIMESTER) 1 [place] [address] DSR (BY AGE) 1 IN 911 T18 RISK Not increased T18 (BY AGE) 1:3551 INTERPRETATION Comment COMMENTS: Comment RESULTS Report TEST RESULTS *Screen Negative* GEST. AGE ON COLLECTION DATE 17.1 WEEKS GESTAT. AGE BASED ON CARLOS MATERNAL [age] CARLOS 27[age]2 YEARS RACE WEIGHT 278 lbs INSULIN DEP DIABETES No MULTIPLE GESTATION No AFP VALUE 27.7 ng/mL AFP MoM 1.03 hCG VALUE 96715 mIU/mL hCG MoM 0.53 uE3 VALUE 1.22 ng/mL uE3 MoM 1.25 GENE VALUE 106.17 pg/mL GENE MoM 0.83 HEPATITIS B SURFACE ANTIGEN - 10/23/15 08:30 HEPATITIS B SURFACE ANTIGEN Negative Negative RPR - 10/23/15 08:30 RPR Non Reactive Non Reactive HIV-1, HIV-2 - 541677 - 10/23/15 08:30 HIV 1/0/2 INDEX VALUE [...] 386 1000/uL 130 - 400 RBC-CBC 4.37 9161625/UL 3.80 - 5.50 RDW-CV 15.3 % 11.7 [...] 374 1000/uL 130 - 400 RBC-CBC 4.55 4864144/UL 3.80 - 5.50 RDW-CV 15.6 % 11.7 [...] 8.8 G/DL 11.6 - 15.6 VENIPUNCTURE DONE Urine protein/creatinine mass ratio - 02/24/18 10:00 Urine protein measurement (mass/volume) 28 mg/dL 6-12 Urine creatinine measurement (mass/volume) 119 mg/dL 30- 125 Urine protein/creatinine mass ratio 0.24 NRG Complete blood count (CBC) with automated white blood cell (WBC) differential - 02/24/18 11:45 Blood leukocytes automated count (number/volume) 8.0 10*3/uL 4.3-11.0 Blood erythrocytes automated count (number/volume) 4.36 10*6/uL 4.35-5.85 Venous blood hemoglobin measurement (mass/volume) 10.3 g/dL 11.5-16.0 Blood hematocrit (volume fraction) 32 % 35-52 Automated erythrocyte mean corpuscular volume 74 [foz_us] 80-99 Automated erythrocyte mean corpuscular hemoglobin (mass per erythrocyte) 24 pg 25-34 Automated erythrocyte mean corpuscular hemoglobin concentration measurement ( mass/volume) 32 g/dL 32-36 Automated erythrocyte distribution width ratio 15.7 % 10.0-14.5 Automated blood platelet count (count/volume) 417 10*3/uL 130-400 Automated blood platelet mean volume measurement 10.5 [foz_us] 7.4-10.4 Automated blood neutrophils/100 leukocytes 75 % 42-75 Automated blood lymphocytes/100 leukocytes 18 % 12-44 Blood monocytes/100 leukocytes 6 % 0-12 Automated blood eosinophils/100 leukocytes 1 % 0-10 Automated blood basophils/100 leukocytes 0 % 0-10 Blood neutrophils automated count (number/volume) 6.0 10*3 1.8-7.8 Blood lymphocytes automated count (number/volume) 1.4 10*3 1.0-4.0 Blood monocytes automated count (number/volume) 0.5 10*3 0.0-1.0 Automated eosinophil count 0.1 10*3/uL 0.0-0.3 Automated blood basophil count (count/volume) 0.0 10*3/uL 0.0-0.1 Comprehensive metabolic panel - 02/24/18 11:45 Serum or plasma sodium measurement (moles/volume) 136 mmol/L 135-145 Serum or plasma potassium measurement (moles/volume) 4.1 mmol/L 3.6-5.0 Serum or plasma chloride measurement (moles/volume) 107 mmol/L 98-107 Carbon dioxide 21 mmol/L 21-32 Serum or plasma anion gap determination (moles/volume) 8 mmol/L 5-14 Serum or plasma urea nitrogen measurement (mass/volume) 7 mg/dL 7-18 Serum or plasma creatinine measurement (mass/volume) 0.71 mg/dL 0.60-1.30 Serum or plasma urea nitrogen/creatinine mass ratio 10 NRG Serum or plasma creatinine measurement with calculation of estimated glomerular filtration rate > NRG Serum or plasma glucose measurement (mass/volume) 90 mg/dL 70-105 Serum or plasma calcium measurement (mass/volume) 9.2 mg/dL 8.5-10.1 Serum or plasma total bilirubin measurement (mass/volume) 0.3 mg/dL 0.1-1.0 Serum or plasma alkaline phosphatase measurement (enzymatic activity/volume) 127 U/L 40-136 Serum or plasma aspartate aminotransferase measurement (enzymatic activity/ volume) 13 U/L 5-34 Serum or plasma alanine aminotransferase measurement (enzymatic activity/volume ) 13 U/L 0-55 Serum or plasma protein measurement (mass/volume) 6.5 g/dL 6.4-8.2 Serum or plasma albumin measurement (mass/volume) 3.2 g/dL 3.2-4.5 Serum or plasma uric acid measurement (mass/volume) - 02/24/18 11:45 Serum or plasma uric acid measurement (mass/volume) 6.3 mg/dL 2.6-7.2 Lactate dehydrogenase 1 [enzymatic activity/volume] in serum or plasma - 11:45 Lactate dehydrogenase 1 [enzymatic activity/volume] in serum or plasma 156 U/L 125-220 Blood type T Indirect antibody screen panel - 02/24/18 11:45 ABO+Rh group AP NRG Transfusion band number [id number] Blood group antibody screen NEGATIVE NRG Complete blood count (CBC) with automated white blood cell (WBC) differential - 02/25/18 05:10 Blood leukocytes automated count (number/volume) 8.4 10*3/uL 4.3-11.0 Blood erythrocytes automated count (number/volume) 3.51 10*6/uL 4.35-5.85 Venous blood hemoglobin measurement (mass/volume) 8.2 g/dL 11.5-16.0 Blood hematocrit (volume fraction) 26 % 35-52 Automated erythrocyte mean corpuscular volume 75 [foz_us] 80-99 Automated erythrocyte mean corpuscular hemoglobin (mass per erythrocyte) 23 pg 25-34 Automated erythrocyte mean corpuscular hemoglobin concentration measurement ( mass/volume) 31 g/dL 32-36 Automated erythrocyte distribution width ratio 15.2 % 10.0-14.5 Automated blood platelet count (count/volume) 361 10*3/uL 130-400 Automated blood platelet mean volume measurement 10.7 [foz_us] 7.4-10.4 Automated blood neutrophils/100 leukocytes 72 % 42-75 Automated blood lymphocytes/100 leukocytes 22 % 12-44 Blood monocytes/100 leukocytes 6 % 0-12 Automated blood eosinophils/100 leukocytes 0 % 0-10 Automated blood basophils/100 leukocytes 0 % 0-10 Blood neutrophils automated count (number/volume) 6.0 10*3 1.8-7.8 Blood lymphocytes automated count (number/volume) 1.8 10*3 1.0-4.0 Blood monocytes automated count (number/volume) 0.5 10*3 0.0-1.0 Automated eosinophil count 0.0 10*3/uL 0.0-0.3 Automated blood basophil count (count/volume) 0.0 10*3/uL 0.0-0.1 Encounters ACCT No. Visit Date/Time Discharge Status Pt. Type Provider Facility Loc./Unit Complaint [id number] 09/17/2015 14:21:00 09/17/2015 23:59:59 CLS Outpatient [facility] [id number] 09/11/2014 11:04:00 09/11/2014 23:59:59 CLS Outpatient [facility] [id number] 03/27/2016 21:00:00 03/30/2016 16:30:00 DIS Inpatient DIANA PFEIFFER [facility] [id number] 03/24/2016 06:55:00 03/24/2016 20:50:00 DIS Inpatient DIANA PFEIFFER [facility] OB [id number] 03/21/2016 16:23:00 03/21/2016 17:05:00 [id number]2016 09:15:00 03/13/2016 10:00:00 [id number]2016 09:45:00 03/06/2016 11:00:00 [id number]/2015 07:37:00 12/31/2015 10:37:00 DIS Outpatient DIANA PFEIFFER [facility] LAB [id number] 12/14/2015 09:30:00 12/14/2015 12:30:00 [id number] 08:18:00 10/23/2015 11:18:00 DIS Outpatient GODWIN PFEIFFERA [facility] LAB [id number] 10/12/2015 12:30:00 10/12/2015 15:30:00 DIS [id number]2016 15:54:00 12/14/2016 23:59:59 CLS Outpatient [facility] [id number] 12/14/2016 17:12:00 Document Registration [id number] 04/03/2016 12:48:37 04/03/2016 14:29:56 DIS Outpatient Diana Pfeiffer [facility] [id number] 09/28/2015 16:21:59 09/28/2015 16:21:59 DIS Outpatient [id number] 03/02/2018 08:00:00 03/02/2018 23:59:59 CLS Preadmit PRIMO MACHADO DO PREVIOUS [id number] 02/24/2018 13:00:00 02/26/2018 17:05:00 DIS Inpatient PRIMO MACHADO DO [facility] PREVIOUS [id number] 12/18/2017 09:47:00 12/18/2017 23:59:59 CLS Outpatient ALEX HINOJOSA [facility] RAD Z34.90 CARE [id number] 10/22/2017 12:53:00 10/22/2017 23:59:59 CLS Outpatient PRIMO MACHADO DO [facility] RAD SUVEY [id number] 03/19/2019 21:51:00 ACT Emergency MARY ELLEN JACOBS, ALEISHA Giron [facility] ER NAUSEA,VOMITING,SPOTTING,FEVER, 17 WEEKS PREG.
[2019-03-19 22:09] LABS: BILIRUBIN,URINE NEGATIVE (NEGATIVE); CLARITY,URINE CLEAR; COLOR,URINE YELLOW; GLUCOSE, URINE (UA) NEGATIVE (NEGATIVE); KETONES,URINE NEGATIVE (NEGATIVE); LEUKOCYTE ESTERASE ,URINE NEGATIVE (NEGATIVE); NITRITE,URINE NEGATIVE (NEGATIVE); PH,URINE 6 (5-9); PROTEIN,URINE 2+ (NEGATIVE); UROBILINOGEN,URINE NORMAL (NORMAL)
[2019-03-19] MEDS ORDERED: NS IV 1000 ML 1,000 ML IV STA (22:12)
[2019-03-19] MEDS ORDERED: ACETAMINOPHEN 500 MG TAB (TYLENOL) PO STA (22:12)
[2019-03-19] MEDS ORDERED: ONDANSETRON 4 MG/2 ML (SDV) Z0FRAN IVP ONE (22:15)
[2019-03-19 22:16] LABS: BACTERIA,URINE TRACE /HPF; RBC,URINE 0-2 /HPF; WBC,URINE RARE /HPF
[2019-03-19 22:25] LABS: BASOPHILS % (AUTO) 0 % (0-10); EOSINOPHILS # (AUTO) 0.1 10^3/uL (0.0-0.3); EOSINOPHILS % (AUTO) 1 % (0-10); HEMATOCRIT 35 % (35-52); HEMOGLOBIN 11.3 G/DL (11.5-16.0); LYMPHOCYTES # (AUTO) 0.4 X 10^3 (1.0-4.0); LYMPHOCYTES % (AUTO) 6 % (12-44); MEAN CORPUSCULAR HEMOGLOBIN 25 PG (25-34); MEAN CORPUSCULAR HGB CONC 33 G/DL (32-36); MEAN CORPUSCULAR VOLUME 75 FL (80-99); MEAN PLATELET VOLUME 10.6 FL (7.4-10.4); MONOCYTES # (AUTO) 0.1 X 10^3 (0.0-1.0); MONOCYTES % (AUTO) 2 % (0-12); NEUTROPHILS # (AUTO) 5.5 X 10^3 (1.8-7.8); NEUTROPHILS % (AUTO) 91 % (42-75); PLATELET COUNT 159 10^3/uL (130-400); RED CELL DISTRIBUTION WIDTH 16.6 % (10.0-14.5); WHITE BLOOD COUNT 6.1 10^3/uL (4.3-11.0)
--- NOTE | 2019-03-19 22:29 | ED Abdominal Pain ---
General Stated Complaint: NAUSEA,VOMITING,SPOTTING,FEVER, 17 WEEKS PREG. Source of Information: Patient Exam Limitations: No Limitations History of Present Illness Date Seen by Provider: March 19, 2019 Time Seen by Provider: 22:01 Initial Comments Here with report of nausea, vomiting and diarrhea today with some spotting this evening. She is approximately 17 weeks . She noted that she wasn't feeling good yesterday and developed low-grade fever. She took Tylenol yesterday afternoon and late this morning. She has not had anything since. She' s had a few episodes of diarrhea today that are nonbloody. Denies dysuria. Denies significant abdominal pain. Last sexual activity about a week or week and a half ago and had no pain with that. Denies vaginal discharge otherwise. Timing/Duration: 1-2 Days Severity/Quality: Mild, Moderate, Cramping Location: Generalized Abdomen Radiation: No Radiation Activities at Onset: None Modifying Factors: Worsens With Eating; Improves With Resting Associated Symptoms: No Back Pain, No Chest Pain; Fever/Chills, Fatigue, Nausea /Vomiting; No Shortness of Air, No Weakness Allergies and Home Medications Allergies Uncoded Allergies: pcn (Allergy, Mild, RASH, 02/24/18) Home Medications Docusate Sodium 100 Mg Capsule, 100 MG PO BID Prescribed by: PRIMO MACHADO on 02/25/18 0847 Ferrous Sulfate 325 Mg Tablet, 325 MG PO DAILY, (Reported) Hydrocodone Bit/Acetaminophen 1 Tab Tab, 1-2 TAB PO Q4H PRN for PAIN-MODERATE Prescribed by: PRIMO MACHADO on 02/25/18 0847 Ibuprofen 600 Mg Tablet, 600 MG PO Q6H Prescribed by: PRIMO MACHADO on 02/25/18 0847 Vit W-Ca,Fe,FA(<1 mg) 1 Each Tablet, 1 EACH PO DAILY, (Reported) Patient Home Medication List Home Medication List Reviewed: Yes Review of Systems Review of Systems Constitutional: see HPI; No chills; fever EENTM: No Symptoms Reported Respiratory: No Symptoms Reported Cardiovascular: No Symptoms Reported Gastrointestinal: See HPI, Abdominal Pain, Diarrhea, Nausea, Vomiting Genitourinary: No Symptoms Reported Musculoskeletal: no symptoms reported Skin: no symptoms reported All Other Systems Reviewed Negative Unless Noted: Yes Past Ipuzegs-Gnewgx-Tjucbr Hx Past Med/Social Hx: Reviewed Nursing Past Med/Soc Hx Patient Social History Alcohol Use: Denies Use Recreational Drug Use: No Smoking Status: Never a Smoker Recent Foreign Travel: No Contact w/Someone Who Travel: No Recent Hopitalizations: No Immunizations Up To Date PED Vaccines UTD: Yes Seasonal Allergies Seasonal Allergies: Yes Past Medical History Surgeries: Yes Section Respiratory: No Cardiac: Yes (HTN WITH ) Neurological: No Female Reproductive Disorders: Denies Sexually Transmitted Disease: No HIV/AIDS: No Genitourinary: No Gastrointestinal: No Musculoskeletal: No Endocrine: No HEENT: No Loss of Vision: Denies Hearing Impairment: Denies Cancer: No Psychosocial: No Integumentary: Yes Eczema Blood Disorders: No Family Medical History Reviewed Nursing Family Hx Cardiovascular disease MATERNAL GRANDFATHER Coronary thrombosis MATERNAL GRANDFATHER Diabetes mellitus MATERNAL GRANDFATHER FHx: multiple sclerosis 19 MOTHER Hypercholesterolemia MATERNAL GRANDFATHER Myocardial infarction MATERNAL GRANDFATHER Neoplasm MATERNAL GRANDMOTHER (BREAST CANCER) PATERNAL GRANDFATHER (LUNG CANCER) Respiratory disorder PATERNAL GRANDFATHER Thyroid disease 19 FATHER PATERNAL GRANDMOTHER Physical Exam Vital Signs Vital Signs - First Documented 03/19/19 21:54 Temp 99.5 Pulse 128 Resp 20 B/P (MAP) 139/89 (106) Pulse Ox 97 O2 Delivery Room Air Capillary Refill : Height/Weight/BMI Height: 5'3.00" Weight: 306lbs. 0.4oz. 138.078600hi; 54.2 BMI Method: General Appearance: WD/WN, no apparent distress HEENT: PERRL/EOMI, pharynx normal Neck: full range of motion, supple Respiratory: lungs clear, no respiratory distress Cardiovascular: no murmur, tachycardia Gastrointestinal: non tender, soft Extremities: non-tender, normal inspection Back: normal inspection, no CVA tenderness, no vertebral tenderness Neurologic/Psychiatric: alert, oriented x 3 Skin: normal color, warm/dry Progress/Results/Core Measures Results/Orders Lab Results Laboratory Tests Test 03/19/19 22:00 03/19/19 22:20 Range/Units Urine Color YELLOW Urine Clarity CLEAR Urine pH 6 5-9 Urine Specific [place] 1.010 L 1.016-1.022 Urine Protein 2+ H NEGATIVE Urine Glucose (UA) NEGATIVE NEGATIVE Urine Ketones NEGATIVE NEGATIVE Urine Nitrite NEGATIVE NEGATIVE Urine Bilirubin NEGATIVE NEGATIVE Urine Urobilinogen NORMAL NORMAL MG/DL Urine Leukocyte Esterase NEGATIVE NEGATIVE Urine RBC (Auto) 5+ H NEGATIVE Urine RBC 0-2 /HPF Urine WBC RARE /HPF Urine Squamous Epithelial Cells 10-25 H /HPF Urine Crystals NONE /LPF Urine Bacteria TRACE /HPF Urine Casts NONE /LPF Urine Mucus NEGATIVE /LPF Urine Culture Indicated NO White Blood Count 6.1 4.3-11.0 10^3/uL Red Blood Count 4.62 4.35-5.85 10^6/uL Hemoglobin 11.3 L 11.5-16.0 G/DL Hematocrit 35 35-52 % Mean Corpuscular Volume 75 L 80-99 FL Mean Corpuscular Hemoglobin 25 25-34 PG Mean Corpuscular Hemoglobin Concent 33 32-36 G/DL Red Cell Distribution Width 16.6 H 10.0-14.5 % Platelet Count 159 130-400 10^3/uL Mean Platelet Volume 10.6 H 7.4-10.4 FL Neutrophils (%) (Auto) 91 H 42-75 % Lymphocytes (%) (Auto) 6 L 12-44 % Monocytes (%) (Auto) 2 0-12 % Eosinophils (%) (Auto) 1 0-10 % Basophils (%) (Auto) 0 0-10 % Neutrophils # (Auto) 5.5 1.8-7.8 X 10^3 Lymphocytes # (Auto) 0.4 L 1.0-4.0 X 10^3 Monocytes # (Auto) 0.1 0.0-1.0 X 10^3 Eosinophils # (Auto) 0.1 0.0-0.3 10^3/uL Basophils # (Auto) 0.0 0.0-0.1 10^3/uL Neutrophils % (Manual) 87 % Lymphocytes % (Manual) 11 % Monocytes % (Manual) 1 % Eosinophils % (Manual) 0 % Basophils % (Manual) 0 % Band Neutrophils 1 % Polychromasia SLIGHT Hypochromasia SLIGHT Anisocytosis SLIGHT Macrocytosis SLIGHT Sodium Level 137 135-145 MMOL/L Potassium Level 3.6 3.6-5.0 MMOL/L Chloride Level 107 98-107 MMOL/L Carbon Dioxide Level 17 L 21-32 MMOL/L Anion Gap 13 5-14 MMOL/L Blood Urea Nitrogen 6 L 7-18 MG/DL Creatinine 0.75 0.60-1.30 MG/DL Estimat Glomerular Filtration Rate > 60 BUN/Creatinine Ratio 8 Glucose Level 134 H 70-105 MG/DL Calcium Level 9.4 8.5-10.1 MG/DL Corrected Calcium 9.8 8.5-10.1 MG/DL Total Bilirubin 0.3 0.1-1.0 MG/DL Aspartate Amino Transf (AST/SGOT) 9 5-34 U/L Alanine Aminotransferase (ALT/SGPT) 13 0-55 U/L Alkaline Phosphatase 78 40-136 U/L Total Protein 6.7 6.4-8.2 GM/DL Albumin 3.5 3.2-4.5 GM/DL My Orders Orders - ALEISHA HYDE MD Ondansetron Injection (Zofran Injectio (03/19/19 22:15) Ns Iv 1000 Ml (Sodium Chloride 0.9%) (03/19/19 22:12) Acetaminophen Tablet (Tylenol Tablet) (03/19/19 22:12) Medications Given in ED Current Medications Medications Dose Ordered Sig/Adrian Route Start Time Stop Time Status Last Admin Dose Admin Ondansetron HCl 4 mg ONCE ONCE IVP 03/19/19 22:15 03/19/19 22:16 DC 03/19/19 22:25 4 MG Vital Signs/I&O 03/19/19 21:54 Temp 99.5 Pulse 128 Resp 20 B/P (MAP) 139/89 (106) Pulse Ox 97 O2 Delivery Room Air Progress Progress Note : Progress Note Seen and evaluated. IV, labs, UA, bedside ultrasound performed. Bedside ultrasound shows movement and heart tones at approximately 165. Records show patient is A+ blood type. Normal saline 1 L bolus ordered. Zofran 4 mg IV ordered. Monitor patient. 2340: Fluids complete. Patient is feeling better and her headache is gone. Not had any vomiting since arrival and tolerated Tylenol without difficulty. She states that she feels like she go home. Discharged home with return precautions. Patient verbalize understanding instructions and agreement with plan. Departure Impression Primary Impression: Nausea and vomiting Qualified Codes: R11.2 - Nausea with vomiting, unspecified Additional Impressions: Diarrhea Qualified Codes: R19.7 - Diarrhea, unspecified Threatened miscarriage Disposition: HOME, SELF-CARE Condition: Improved Departure-Patient Inst. Decision time for Depature: 23:42 Referrals: PRIMO MACHADO DO (PCP/Family) Primary Care Physician Patient Instructions: Diarrhea in Adolescents and Adults, Nausea and Vomiting of (DC), Threatened Miscarriage Add. Discharge Instructions: Clear liquid diet for the next 24 hours and then advance as tolerated. Pelvic rest until cleared by your OB doctor. Follow-up with your OB doctor this week for recheck and further evaluation. You may take Tylenol/acetaminophen 1000 mg every 6 hours as needed for fever or pain. Return for worse pain, fever, vomiting, bleeding greater than 2 pads per hour for more than 2 hours or other concerns as needed. Copy Copies To 1: PRIMO MACHADO TIMOTHY D MD March 19, 2019 22:29
[2019-03-19 22:38] LABS: ANISOCYTOSIS SLIGHT; BAND NEUTROPHILS 1 %; BASOPHILS % (MANUAL) 0 %; EOSINOPHILS % (MANUAL) 0 %; HYPOCHROMASIA SLIGHT; LYMPHOCYTES % (MANUAL) 11 %; MONOCYTES % (MANUAL) 1 %; NEUTROPHILS % (MANUAL) 87 %; POLYCHROMASIA SLIGHT
[2019-03-19 22:44] LABS: ALANINE AMINOTRANSFERASE 13 U/L (0-55); ALBUMIN 3.5 GM/DL (3.2-4.5); ALKALINE PHOSPHATASE 78 U/L (40-136); BILIRUBIN,TOTAL 0.3 MG/DL (0.1-1.0); BUN/CREATININE RATIO 8; CALCIUM 9.4 MG/DL (8.5-10.1); CARBON DIOXIDE 17 MMOL/L (21-32); CHLORIDE 107 MMOL/L (98-107); CREATININE SERUM 0.75 MG/DL (0.60-1.30); GFR ESTIMATED > 60; GLUCOSE 134 MG/DL (70-105); POTASSIUM 3.6 MMOL/L (3.6-5.0); SODIUM 137 MMOL/L (135-145); TOTAL PROTEIN 6.7 GM/DL (6.4-8.2)
[2019-03-19 23:59] VITALS: BP 144/75
== END 2019-03-19 23:59 | disposition home or self-care (01) ==
LOC: EDUNIT# 21:49 → ER 21:51
DX: O20.0 Threatened abortion (principal); O26.892 Other specified pregnancy related conditions, second trimester; R19.7 Diarrhea, unspecified; O21.9 Vomiting of pregnancy, unspecified; Z3A.17 17 weeks gestation of pregnancy; Z88.0 Allergy status to penicillin; Z98.890 Other specified postprocedural states; Z82.49 Family history of ischemic heart disease and other diseases of the circulatory system; Z80.3 Family history of malignant neoplasm of breast; Z80.1 Family history of malignant neoplasm of trachea, bronchus and lung
CPT/HCPCS: 36415; 80053; 81000; 85007; 85027; 96361; 96374

== ENCOUNTER → 2019-04-15 | Outpatient (CLI) | payer BC ==
--- NOTE | 2019-04-15 12:15 | Diagnostic Imaging Report ---
INDICATION: survey. TECHNIQUE: Multiple real-time grayscale images were obtained over the gravid uterus. COMPARISON: None. FINDINGS: There is a single live fetus in a cephalic presentation. heart rate was recorded at 132 beats per minute. Placenta is posterior. Amniotic fluid volume appears appropriate. Cervical length is 4.0 cm. The survey is severely limited due to patient body habitus. anatomy was very poorly visualized with exception of the cord insertion. Biometrical measurements are as follows: Biparietal 4.48 cm, age 19 weeks 4 days. Head circumference 16.88 cm, age 19 weeks 4 days. Abdominal circumference 14.71 cm, age 20 weeks 0 days. Femur length 3.22 cm, age 20 weeks 1 days. Sonographic estimate age: 19 weeks 6 days. Sonographic estimated date of delivery: 09/03/2019. Estimated Weight: 323 gm (+/- 47 gm). LMP percentile: 21%. heart rate: 132 beats per minute. number: 1 of 1. IMPRESSION: Single live IUP of 19 weeks 6 days gestational age with an estimated date of confinement sonographically of 09/03/2019. survey is severely limited. Followup could be obtained. Dictated by: Dictated on workstation # [id number]
== END ==
LOC: RAD 09:56
PROVIDERS: ATTEND Obstetrics & Gynecology
DX: Z36.89 Encounter for other specified antenatal screening (principal); Z3A.19 19 weeks gestation of pregnancy
CPT/HCPCS: 76805

== ENCOUNTER → 2019-06-06 | Outpatient (CLI) | payer BC ==
--- NOTE | 2019-06-06 12:22 | Diagnostic Imaging Report ---
INDICATION: Evaluate anatomy. TECHNIQUE: Multiple real-time grayscale images were obtained over the gravid uterus. COMPARISON: 04/15/2019. FINDINGS: There is a single live fetus in a breech presentation. heart rate was recorded at 139 beats per minute. Placenta is posterior. Amniotic fluid index is 20.2 cm. Cervical length is 4.3 cm. survey demonstrates kidneys, bladder and stomach to be unremarkable. brain is unremarkable. There is a four-chamber heart. There is a three-vessel cord. spine is unremarkable. IMPRESSION: Unremarkable followup ultrasound. survey is unremarkable. Dictated by: Dictated on workstation # [id number]
== END ==
LOC: RAD 09:48
PROVIDERS: ATTEND Obstetrics & Gynecology
DX: Z34.92 Encounter for supervision of normal pregnancy, unspecified, second trimester (principal); Z87.59 Personal history of other complications of pregnancy, childbirth and the puerperium; Z3A.00 Weeks of gestation of pregnancy not specified
CPT/HCPCS: 76816

== ENCOUNTER 2019-08-17 10:04 | Outpatient (CLI) | payer BC ==
[~2019-08-17] VITALS: Ht 157.5 cm; Wt 152.3 kg
[2019-08-17 10:27] VITALS: BP 153/90
[2019-08-17] MEDS ORDERED: PREN1TAB79 PO (10:33)
== END 2019-08-17 10:25 | disposition home or self-care (01) ==
LOC: PREOP 10:04
PROVIDERS: ATTEND Obstetrics & Gynecology
DX: Z01.818 Encounter for other preprocedural examination (principal)
CPT/HCPCS: 87081

== ENCOUNTER 2019-08-21 05:25 | Inpatient (IN) | payer BC ==
[2019-08-21] VITALS (12 sets, daily range): BP systolic 108–189; BP diastolic 68–103
[~2019-08-21] VITALS: Ht 160 cm; Wt 150.0 kg
--- NOTE | 2019-08-21 05:15 | NUR ---
LUIS VALDEZ presented to unit via ambulation from ED, accompanied by SO, with c/o 38 WEEK COMPLICATIONS. LUIS VALDEZ weighed, gowned, voided, and to bed. EFHM and TOCO applied, VS taken. LUIS VALDEZ oriented to bed controls, call light, TV, heat, and A/C controls.
[~2019-08-21 05:25] MED LIST changes: +PREN1TAB79 PO
[2019-08-21 05:45] LABS: BILIRUBIN,URINE NEGATIVE (NEGATIVE); CLARITY,URINE CLEAR; COLOR,URINE YELLOW; GLUCOSE, URINE (UA) NEGATIVE (NEGATIVE); KETONES,URINE NEGATIVE (NEGATIVE); LEUKOCYTE ESTERASE ,URINE 1+ (NEGATIVE); NITRITE,URINE NEGATIVE (NEGATIVE); PH,URINE 6 (5-9); PROTEIN,URINE 3+ (NEGATIVE); UROBILINOGEN,URINE NORMAL (NORMAL)
[2019-08-21 05:55] LABS: BACTERIA,URINE FEW /HPF
--- NOTE | 2019-08-21 06:11 | NUR ---
Contacted Dr Cortez at [phone] with report and order to schedule repeat [facility]. [id number] HGina almonte RN advised that previous surgery scheduled and section will be to follow. Dr Cortez called and excepted this info unless pts pre-eclamptic labs return with high levels.
[2019-08-21] MEDS ORDERED: LACTATED RINGERS 1,000 ML IV ONE (06:12)
[2019-08-21] MEDS ORDERED: FAMOTIDINE 20MG/2ML IV (PEPCID) IV ONE (06:15)
[2019-08-21] MEDS ORDERED: CATHETER FLUSH 10 ML SYR IV PRN (06:15)
[2019-08-21] MEDS ORDERED: ceFAZolin INJECTION 1,000 MG in WATER (STERILE) FOR INJECTION 10 ML IV ONE (06:15)
[2019-08-21] MEDS ORDERED: metroNIDAZOLE 500MG/100ML IVPB 100 ML IV ONE (06:15)
[2019-08-21] MEDS ORDERED: CITRIC ACID/SOB CIT (BICITRA) 30 ML UDC PO ONE (06:15)
[2019-08-21] MEDS ORDERED: METOCLOPRAMIDE INJ 10 MG/2 ML (REGLAN) IV ONE (06:15)
[2019-08-21 06:40] LABS: BASOPHILS % (AUTO) 0 % (0-10); EOSINOPHILS # (AUTO) 0.2 10^3/uL (0.0-0.3); EOSINOPHILS % (AUTO) 2 % (0-10); HEMATOCRIT 33 % (35-52); HEMOGLOBIN 10.4 G/DL (11.5-16.0); LYMPHOCYTES # (AUTO) 1.5 X 10^3 (1.0-4.0); LYMPHOCYTES % (AUTO) 16 % (12-44); MEAN CORPUSCULAR HEMOGLOBIN 23 PG (25-34); MEAN CORPUSCULAR HGB CONC 31 G/DL (32-36); MEAN CORPUSCULAR VOLUME 74 FL (80-99); MEAN PLATELET VOLUME 10.2 FL (7.4-10.4); MONOCYTES # (AUTO) 0.5 X 10^3 (0.0-1.0); MONOCYTES % (AUTO) 6 % (0-12); NEUTROPHILS # (AUTO) 7.4 X 10^3 (1.8-7.8); NEUTROPHILS % (AUTO) 77 % (42-75); PLATELET COUNT 393 10^3/uL (130-400); RED CELL DISTRIBUTION WIDTH 16.2 % (10.0-14.5); WHITE BLOOD COUNT 9.6 10^3/uL (4.3-11.0)
[2019-08-21 07:01] LABS: ALANINE AMINOTRANSFERASE 18 U/L (0-55); ALBUMIN 3.1 GM/DL (3.2-4.5); ALKALINE PHOSPHATASE 147 U/L (40-136); BILIRUBIN,TOTAL 0.3 MG/DL (0.1-1.0); BUN/CREATININE RATIO 10; CARBON DIOXIDE 20 MMOL/L (21-32); CHLORIDE 108 MMOL/L (98-107); CREATININE SERUM 0.68 MG/DL (0.60-1.30); GFR ESTIMATED > 60; GLUCOSE 101 MG/DL (70-105); POTASSIUM 3.9 MMOL/L (3.6-5.0); SODIUM 137 MMOL/L (135-145); TOTAL PROTEIN 6.4 GM/DL (6.4-8.2); URIC ACID 6.2 MG/DL (2.6-7.2)
[2019-08-21] MEDS ORDERED: FLU QUADRIvalent (5+ YOA) 2019-2020 (AFLURIA) 0.5 ML IM ONE (07:45)
[2019-08-21] MEDS ORDERED: CITRIC ACID/SOB CIT (BICITRA) 30 ML UDC ONE (09:16)
[2019-08-21] MEDS ORDERED: METOCLOPRAMIDE INJ 10 MG/2 ML (REGLAN) ONE (09:16)
[2019-08-21] MEDS ORDERED: ceFAZolin INJECTION 1,000 MG ONE (09:17)
[2019-08-21] MEDS ORDERED: FAMOTIDINE 20MG/2ML IV (PEPCID) ONE (09:17)
[2019-08-21] MEDS ORDERED: WATER (STERILE) FOR INJECTION 10 ML ONE (09:17)
--- NOTE | 2019-08-21 09:21 | Progress Note-Pre Operative ---
Pre-Operative Progress Note H&P Reviewed The H&P was reviewed, patient examined and she was MRSA + on screen. Started on bactroban intranasally on 08/18/19. Will continue. Date Seen by Provider: Aug 21, 2019 Time Seen by Provider: 09:15 Date H&P Reviewed: Aug 21, 2019 Time H&P Reviewed: 09:00 Pre-Operative Diagnosis: Previous section, preeclampsia, mild PRIMO MACHADO DO Aug 21, 2019 9:21 am
[2019-08-21] MEDS ORDERED: ONDANSETRON 4 MG/2 ML (SDV) Z0FRAN ONE (09:59)
[2019-08-21] MEDS ORDERED: DEXAMETHASONE 10 MG/ML (DECADRON) 1 ML VIAL ONE (09:59)
[2019-08-21] MEDS ORDERED: KETOROLAC 30 MG/ML VIAL ONE (09:59)
[2019-08-21] MEDS ORDERED: LACTATED RINGERS 1,000 ML IV PRN (10:00)
[2019-08-21] MEDS ORDERED: OXYTOCIN/NORMAL SALINE 1,000 ML IV ONE (10:02)
[2019-08-21] MEDS ORDERED: fentaNYL INJECTION 100 MCG/2 ML AMP ONE (10:33)
[2019-08-21] MEDS: KETOROLAC 30 MG/ML VIAL IV SCH ×2 (11:01→19:07)
[2019-08-21] MEDS ORDERED: FUROSEMIDE 40 MG/4 ML INJ (LASIX) ONE (11:21)
[2019-08-21] MEDS: OXYTOCIN/NORMAL SALINE 500 ML IV SCH ×2 (11:25→12:00)
[2019-08-21] MEDS ORDERED: TETANUS,DIPTH,PERTUSS P/F (BOOSTRIX) 0.5 ML VIAL IM SCH (11:30)
[2019-08-21] MEDS ORDERED: FUROSEMIDE 40 MG/4 ML INJ (LASIX) IVP NR (11:30)
[2019-08-21] MEDS ORDERED: morphine INJ 4 MG/ML 1 ML (VIAL/SYRINGE) IVP PRN (11:30)
[2019-08-21] MEDS ORDERED: KETOROLAC 30 MG/ML VIAL IV SCH (11:30)
[2019-08-21] MEDS ORDERED: MEASLES,MUMPS,RUBELLA 1 EA INJ SC SCH (11:30)
--- NOTE | 2019-08-21 11:37 | Cesarean Section Operative ---
Procedure Procedure Note Pre-operative Diagnosis: Jazmine Menjivar is a 30 /Para 3 / 2,Gestational Age 38 5/7 weeks, previous section, preeclampsia Post-operative Diagnosis: same Procedure: Repeat low transverse section Physician: PRIMO MACHADO Estimated blood loss: [] mL Disposition: stable Findings: Viable male infant, Apgars 9/9, weight 9#2ounces, intact placenta, 3vc, normal appearing uterus, tubes, and ovaries. Nuchal cord x 2. Indications:Jazmine Menjivar is a 30 /Para 3 / 2,Gestational Age 38 5/7 weeks, previous section, preeclampsia; presenting for repeat section Procedure Details: The patient was seen in pre-op and the procedure was discussed with the patient in full, including the risks, benefits, and alternatives. All questions were answered. The patient was taken to the operating room and a time out was performed, verifying patient and procedure. After spinal anesthesia was placed by our anesthesia colleagues, the patient was placed in the dorsal supine with leftward tilt for uterine displacement.~ Her abdomen was then prepped and draped in the typical sterile fashion. A Pfannenstiel skin incision was made using a scalpel and carried down through the underlying fascia. The fascia was incised in the midline and tented up using Cristiana clamps. On both the inferior and superior fascia side the rectus muscle was dissected off bluntly and sharply using Grady scissors. The peritoneum was identified and entered bluntly in the midline. This was then stretched laterally using manual strength. After entering the abdominal cavity and confirming lack of intraperitoneal adhesions, a large Armando retractor was placed and the lower uterine segment was visualized. A bladder flap was created with the use of Metzenbaum scissors.~ A scalpel was utilized to make a low transverse uterine incision. Amniotomy was performed with an Allis clamp with return of clear fluid. The infant's head was grasped and brought to the level of the incision. Fundal pressure was applied and was delivered without difficulty. Mouth and nares were suctioned with bulb suction. After the umbilical cord was clamped and cut, the was handed off to the pediatric staff. A sample of cord blood was then obtained. The placenta was delivered intact via uterine massage. The uterus was exteriorized and cleared of all clots and debris. The uterine incision was closed using 0 Vicryl in a running locked fashion. A second imbricated layer was placed using 0 Vicryl in a running fashion as well. The uterus was flexed forward and the posterior rectouterine space was inspected and cleared of all clots and debris. Again the hysterotomy site was examined and hemostasis was observed. The bilateral tubes and ovaries appeared normal. The uterus was placed back into the abdominal cavity and abdominal gutters were cleared of all clots and debris. A final check of the uterine incision showed it to be hemostatic. The peritoneum was closed using 3-0 Vicryl in a running fashion. The fascia was closed with 0 Vicryl in a running fashion. The subcutaneous space was hemostatic, and irrigated. The subcutaneous space was closed with 3-0 Vicryl in several single interrupted stitches. The skin was then closed using 4-0 Monocryl in a running subcuticular fashion. The skin edges were reapproximated together and were hemostatic. A pressure dressing was applied. All sponge, lap and needle counts were correct at the end of the procedure per nursing. Vitals - Labs Vital Signs - I&O Vital Signs Date Time Temp Pulse Resp B/P (MAP) Pulse Ox O2 Delivery O2 Flow Rate FiO2 08/21/19 06:36 36.6 99 18 98 Room Air 08/21/19 05:54 36.6 99 18 Room Air 08/21/19 05:41 36.6 99 18 139/78 (98) Labs Laboratory Tests 08/21/19 05:30: Urine Color YELLOW, Urine Clarity CLEAR, Urine pH 6, Urine Specific [place] 1.010L, Urine Protein 3+H, Urine Glucose (UA) NEGATIVE, Urine Ketones NEGATIVE, Urine Nitrite NEGATIVE, Urine Bilirubin NEGATIVE, Urine Urobilinogen NORMAL, Urine Leukocyte Esterase 1+H, Urine RBC (Auto) NEGATIVE, Urine RBC NONE, Urine WBC 2-5, Urine Squamous Epithelial Cells 5-10, Urine Crystals NONE, Urine Bacteria FEWH, Urine Casts NONE, Urine Mucus NEGATIVE, Urine Culture Indicated CULTURE PENDING 08/21/19 06:30: White Blood Count 9.6, Red Blood Count 4.52, Hemoglobin 10.4L, Hematocrit 33L, Mean Corpuscular Volume 74L, Mean Corpuscular Hemoglobin 23L, Mean Corpuscular Hemoglobin Concent 31L, Red Cell Distribution Width 16.2H, Platelet Count 393, Mean Platelet Volume 10.2, Neutrophils (%) (Auto) 77H, Lymphocytes (%) (Auto) 16, Monocytes (%) (Auto) 6, Eosinophils (%) (Auto) 2, Basophils (%) (Auto) 0, Neutrophils # (Auto) 7.4, Lymphocytes # (Auto) 1.5, Monocytes # (Auto) 0.5, Eosinophils # (Auto) 0.2, Basophils # (Auto) 0.0, Sodium Level 137, Potassium Level 3.9, Chloride Level 108H, Carbon Dioxide Level 20L, Anion Gap 9, Blood Urea Nitrogen 7, Creatinine 0.68, Estimat Glomerular Filtration Rate > 60, BUN/Creatinine Ratio 10, Glucose Level 101, Uric Acid 6.2, Calcium Level 9.0, Corrected Calcium 9.7, Total Bilirubin 0.3, Aspartate Amino Transf (AST/SGOT) 15, Alanine Aminotransferase (ALT/SGPT) 18, Alkaline Phosphatase 147H, Lactate Dehydrogenase 193, Total Protein 6.4, Albumin 3.1L PRIMO MACHADO DO Aug 21, 2019 11:37
[2019-08-21] MEDS ORDERED: METOCLOPRAMIDE INJ 10 MG/2 ML (REGLAN) IV PRN (11:45)
[2019-08-21] MEDS ORDERED: diphenhydrAMINE 50 MG/ML INJ (BENADRYL) IV PRN (11:45)
[2019-08-21] MEDS ORDERED: NALOXONE 0.4 MG/ML 1 ML (NARCAN) VIAL IV PRN ×2 (11:45)
[2019-08-21] MEDS ORDERED: ONDANSETRON 4 MG/2 ML (SDV) Z0FRAN IV PRN (11:45)
--- NOTE | 2019-08-21 13:45 | NUR ---
report from samuel oseguera RN.
[2019-08-21] MEDS ORDERED: CATHETER FLUSH 10 ML SYR IV SCH (14:00)
[2019-08-21] MEDS: ACETAMINOPHEN 500 MG TAB (TYLENOL) PO SCH (19:06)
[2019-08-21] MEDS: METOCLOPRAMIDE 10 MG (REGLAN) TAB PO SCH (19:06)
[2019-08-21] MEDS: DOCUSATE SODIUM 100 MG (COLACE) CAP PO SCH (19:59)
--- NOTE | 2019-08-21 21:16 | NUR ---
Dr. Cortez notified of BP but pt denies having a headache or blurred vision. Orders received.
[2019-08-21] MEDS ORDERED: amLODIPine 10 MG (NORVASC) TAB ONE (21:24)
[2019-08-21] MEDS ORDERED: amLODIPine 10 MG (NORVASC) TAB PO ONE (21:30)
[2019-08-22 00:07] VITALS: BP 127/76
--- NOTE | 2019-08-22 01:00 | NUR ---
REPORT RECEIVED FROM Onesimo LUNSFORD RN.
[2019-08-22] MEDS: KETOROLAC 30 MG/ML VIAL IV SCH (01:19)
[2019-08-22] MEDS: METOCLOPRAMIDE 10 MG (REGLAN) TAB PO SCH ×4 (01:19→20:20)
[2019-08-22] MEDS: ACETAMINOPHEN 500 MG TAB (TYLENOL) PO SCH ×3 (03:27→20:29)
[2019-08-22 03:35] VITALS: BP 130/72
[2019-08-22] MEDS ORDERED: MILK OF MAGNESIA 400 MG/5 ML 30 ML UDC PO PRN (05:00)
[2019-08-22 05:42] LABS: BASOPHILS % (AUTO) 0 % (0-10); EOSINOPHILS % (AUTO) 0 % (0-10); HEMATOCRIT 29 % (35-52); HEMOGLOBIN 8.9 G/DL (11.5-16.0); LYMPHOCYTES # (AUTO) 1.9 X 10^3 (1.0-4.0); LYMPHOCYTES % (AUTO) 17 % (12-44); MEAN CORPUSCULAR HEMOGLOBIN 23 PG (25-34); MEAN CORPUSCULAR HGB CONC 31 G/DL (32-36); MEAN CORPUSCULAR VOLUME 74 FL (80-99); MONOCYTES # (AUTO) 0.8 X 10^3 (0.0-1.0); MONOCYTES % (AUTO) 7 % (0-12); NEUTROPHILS # (AUTO) 8.8 X 10^3 (1.8-7.8); NEUTROPHILS % (AUTO) 77 % (42-75); PLATELET COUNT 371 10^3/uL (130-400); RED CELL DISTRIBUTION WIDTH 16.4 % (10.0-14.5); WHITE BLOOD COUNT 11.5 10^3/uL (4.3-11.0)
[2019-08-22] MEDS: IBUPROFEN 600 MG (MOTRIN) TAB PO SCH ×3 (07:09→20:21)
--- NOTE | 2019-08-22 08:03 | Postpartum Progress Note ---
Post Op Post-operative Day #1 s/p RLTCS, mild preeclampsia Started BP last night due to increasing BP after spinal wore off. BP better today. No headaches or visual changes. Subjective: Patient is without complaints. Ambulating, voiding after shelton removed. Tolerating a regular diet without nausea or vomiting. Normal lochia. Pain is well controlled with oral pain medications. Passing flatus. [] feeding. [] Objective: Intake and Output 08/22/19 00:00 Intake Total 2220 ml Output Total 530 ml Balance 1690 ml Intake IV Total 2220 ml Output Urine Total 30 ml Estimated Blood Loss 500 ml Daily Weight Change No 08/21/19 08/22/19 08/22/19 20:20 00:07 03:35 Temp 36.5 36.4 Pulse 84 91 Resp 18 18 B/P (MAP) 187/94 (125) 127/76 (93) 130/72 (91) Pulse Ox 99 97 O2 Delivery Room Air Room Air 08/22/19 00:00 Intake Total 200 ml Balance 200 ml Laboratory Tests Test 08/21/19 05:30 08/21/19 06:30 08/22/19 05:20 Range/Units Urine Color YELLOW Urine Clarity CLEAR Urine pH 6 5-9 Urine Specific [place] 1.010 L 1.016-1.022 Urine Protein 3+ H NEGATIVE Urine Glucose (UA) NEGATIVE NEGATIVE Urine Ketones NEGATIVE NEGATIVE Urine Nitrite NEGATIVE NEGATIVE Urine Bilirubin NEGATIVE NEGATIVE Urine Urobilinogen NORMAL NORMAL MG/DL Urine Leukocyte Esterase 1+ H NEGATIVE Urine RBC (Auto) NEGATIVE NEGATIVE Urine RBC NONE /HPF Urine WBC 2-5 /HPF Urine Squamous Epithelial Cells 5-10 /HPF Urine Crystals NONE /LPF Urine Bacteria FEW H /HPF Urine Casts NONE /LPF Urine Mucus NEGATIVE /LPF Urine Culture Indicated CULTURE PENDING White Blood Count 9.6 11.5 H 4.3-11.0 10^3/uL Red Blood Count 4.52 3.94 L 4.35-5.85 10^6/uL Hemoglobin 10.4 L 8.9 L 11.5-16.0 G/DL Hematocrit 33 L 29 L 35-52 % Mean Corpuscular Volume 74 L 74 L 80-99 FL Mean Corpuscular Hemoglobin 23 L 23 L 25-34 PG Mean Corpuscular Hemoglobin Concent 31 L 31 L 32-36 G/DL Red Cell Distribution Width 16.2 H 16.4 H 10.0-14.5 % Platelet Count 393 371 130-400 10^3/uL Mean Platelet Volume 10.2 10.0 7.4-10.4 FL Neutrophils (%) (Auto) 77 H 77 H 42-75 % Lymphocytes (%) (Auto) 16 17 12-44 % Monocytes (%) (Auto) 6 7 0-12 % Eosinophils (%) (Auto) 2 0 0-10 % Basophils (%) (Auto) 0 0 0-10 % Neutrophils # (Auto) 7.4 8.8 H 1.8-7.8 X 10^3 Lymphocytes # (Auto) 1.5 1.9 1.0-4.0 X 10^3 Monocytes # (Auto) 0.5 0.8 0.0-1.0 X 10^3 Eosinophils # (Auto) 0.2 0.0 0.0-0.3 10^3/uL Basophils # (Auto) 0.0 0.0 0.0-0.1 10^3/uL Sodium Level 137 135-145 MMOL/L Potassium Level 3.9 3.6-5.0 MMOL/L Chloride Level 108 H 98-107 MMOL/L Carbon Dioxide Level 20 L 21-32 MMOL/L Anion Gap 9 5-14 MMOL/L Blood Urea Nitrogen 7 7-18 MG/DL Creatinine 0.68 0.60-1.30 MG/DL Estimat Glomerular Filtration Rate > 60 BUN/Creatinine Ratio 10 Glucose Level 101 70-105 MG/DL Uric Acid 6.2 2.6-7.2 MG/DL Calcium Level 9.0 8.5-10.1 MG/DL Corrected Calcium 9.7 8.5-10.1 MG/DL Total Bilirubin 0.3 0.1-1.0 MG/DL Aspartate Amino Transf (AST/SGOT) 15 5-34 U/L Alanine Aminotransferase (ALT/SGPT) 18 0-55 U/L Alkaline Phosphatase 147 H 40-136 U/L Lactate Dehydrogenase 193 125-220 U/L Total Protein 6.4 6.4-8.2 GM/DL Albumin 3.1 L 3.2-4.5 GM/DL Physical Exam: General - Alert and oriented, no apparent distress Abdomen - Soft, appropriately tender to palpation, non-distended, fundus firm at umbilicus Incision - clean, dry and intact; no erythema or induration, no drainage Extremities - no edema, negative Betty's bilaterally [] Assessment: [] post-operative day # [], status post []. Recovering well, hemodynamically stable Acute blood loss anemia [] Plan: Routine post-operative care. Encourage breast feeding. Encourage ambulation. VTE prophylaxis: SCDs. Ferrous sulfate supplementation. Plan for discharge [] Vitals - Labs Vital Signs - I&O Vital Signs Date Time Temp Pulse Resp B/P (MAP) Pulse Ox O2 Delivery O2 Flow Rate FiO2 08/22/19 03:35 36.4 91 18 130/72 (91) 97 Room Air 08/22/19 00:07 36.5 84 18 127/76 (93) 99 Room Air 08/21/19 20:20 187/94 (125) 08/21/19 19:55 36.1 81 18 189/103 (131) 99 Room Air 08/21/19 17:05 36.8 80 20 150/80 (103) 99 Room Air 08/21/19 12:40 36.6 86 20 132/88 (103) 98 Room Air 08/21/19 12:15 36.8 20 133/73 (93) 98 Room Air 08/21/19 12:15 Room Air 08/21/19 12:00 36.9 20 146/68 (94) 100 Room Air 08/21/19 12:00 Room Air 08/21/19 11:45 36.7 20 108/98 (101) 99 Room Air 08/21/19 11:45 Room Air 08/21/19 11:35 36.2 20 124/88 (100) 100 Room Air 08/21/19 11:35 Room Air 08/21/19 11:25 37.3 20 114/75 (88) 100 Room Air 08/21/19 11:25 Room Air I & O 08/22/19 07:00 Intake Total 2220 ml Output Total 530 ml Balance 1690 ml Labs Laboratory Tests 08/22/19 05:20: White Blood Count 11.5H, Red Blood Count 3.94L, Hemoglobin 8.9L, Hematocrit 29L, Mean Corpuscular Volume 74L, Mean Corpuscular Hemoglobin 23L, Mean Corpuscular Hemoglobin Concent 31L, Red Cell Distribution Width 16.4H, Platelet Count 371, Mean Platelet Volume 10.0, Neutrophils (%) (Auto) 77H, Lymphocytes (%) (Auto) 17, Monocytes (%) (Auto) 7, Eosinophils (%) (Auto) 0, Basophils (%) (Auto) 0, Neutrophils # (Auto) 8.8H, Lymphocytes # (Auto) 1.9, Monocytes # (Auto) 0.8, Eosinophils # (Auto) 0.0, Basophils # (Auto) 0.0 PRIMO MACHADO DO Aug 22, 2019 08:03
[2019-08-22] MEDS: DOCUSATE SODIUM 100 MG (COLACE) CAP PO SCH ×2 (08:16→20:20)
[2019-08-22] MEDS: amLODIPine 5 MG (NORVASC) TAB PO SCH (08:16)
[2019-08-22] MEDS: MUPIROCIN 2% OINT 22 GM (BACTROBAN) TUBE NSEACH SCH ×2 (08:17→20:21)
[2019-08-22 08:20] VITALS: BP 150/100
--- NOTE | 2019-08-22 08:20 | NUR ---
initial shift assessment completed, see interventions for further. POC reviewed, states understanding.
--- NOTE | 2019-08-22 09:50 | NUR ---
called to check on pt's status. update given on previous BP.
[2019-08-22 09:52] VITALS: BP 132/75
--- NOTE | 2019-08-22 10:22 | Anesthesia-Regional Post-Op ---
Regional Patient Condition Mental Status: Alert, Oriented x3 Circulation: Same as Pre-Op Headache: Absent Sensation: Full Recovery Motor Block: Absent Post Op Complications Complications None Follow Up Care/Instructions Patient Instructions None needed. Anesthesia/Patient Condition Patient is doing well, no complaints, stable vital signs, no apparent adverse anesthesia problems. No complications reported per nursing. CHACHA CARDENAS CRNA Aug 22, 2019 10:22
--- NOTE | 2019-08-22 10:50 | NUR ---
up to shower. bed linens changed.
[2019-08-22 14:26] VITALS: BP 150/83
--- NOTE | 2019-08-22 19:30 | NUR ---
report given to RADHA Kimbrough.
[2019-08-22 20:21] VITALS: BP 144/92
[2019-08-23] MEDS: ACETAMINOPHEN 500 MG TAB (TYLENOL) PO SCH ×2 (00:57→09:27)
[2019-08-23 01:00] VITALS: BP 142/92
[2019-08-23] MEDS: IBUPROFEN 600 MG (MOTRIN) TAB PO SCH ×2 (05:17→12:08)
[2019-08-23] MEDS: METOCLOPRAMIDE 10 MG (REGLAN) TAB PO SCH ×3 (05:17→12:07)
[2019-08-23 08:00] VITALS: BP 143/92
--- NOTE | 2019-08-23 08:00 | NUR ---
A.M. ASSESSMENT COMPLETED. VSS. CARING FOR IN ROOM. GOOD INTERACTION NOTED.
--- NOTE | 2019-08-23 09:15 | NUR ---
DR. BOWLING HERE TO SEE INFANT.
[2019-08-23] MEDS: amLODIPine 5 MG (NORVASC) TAB PO SCH (09:27)
[2019-08-23] MEDS: DOCUSATE SODIUM 100 MG (COLACE) CAP PO SCH (09:27)
[2019-08-23] MEDS: MUPIROCIN 2% OINT 22 GM (BACTROBAN) TUBE NSEACH SCH (09:28)
[2019-08-23] MEDS ORDERED: FLU QUADRIvalent (5+ YOA) 2019-2020 (AFLURIA) 0.5 ML IM ONE (09:30)
--- NOTE | 2019-08-23 09:33 | NUR ---
FLU VACCINE GIVEN IM IN LEFT DELTOID. SITE CLEAR. PT HAS HAD HER TDAP VACCINE.
--- NOTE | 2019-08-23 11:00 | NUR ---
CONTINUES TO CARE FOR IN ROOM. DOING WELL.
--- NOTE | 2019-08-23 12:15 | NUR ---
JELENA RAMIREZ. WAITING FOR DR. MACHADO TO DO ROUNDS.
--- NOTE | 2019-08-23 13:15 | NUR ---
DR. MACHADO HERE TO SEE PT.
--- NOTE | 2019-08-23 13:26 | Postpartum Progress Note ---
Post Op Post-operative Day #2 s/p RLTCS Subjective: Patient is without complaints. Ambulating, voiding after shelton removed. Tolerating a regular diet without nausea or vomiting. Normal lochia. Pain is well controlled with oral pain medications. Passing flatus. breast feeding. states has some nipple cracking. Requested Rx for APNO. she states hand swelling is much better Objective: 08/23/19 08:00 Temp 36.7 Pulse 85 Resp 18 B/P (MAP) 143/92 (109) Pulse Ox 99 O2 Delivery Room Air 08/23/19 00:00 Intake Total 1700 ml Output Total 2100 ml Balance -400 ml Physical Exam: General - Alert and oriented, no apparent distress Abdomen - Soft, appropriately tender to palpation, non-distended, fundus firm at umbilicus Incision - clean, dry and intact; no erythema or induration, no drainage Extremities - 1+ edema, negative Betty's bilaterally [] Assessment: 1 post-operative day # [], status post []. Recovering well, hemodynamically stable Acute blood loss anemia Plan: Routine post-operative care. Encourage breast feeding. Encourage ambulation. VTE prophylaxis: SCDs. Ferrous sulfate supplementation. Plan for discharge today Vitals - Labs Vital Signs - I&O Vital Signs Date Time Temp Pulse Resp B/P (MAP) Pulse Ox O2 Delivery O2 Flow Rate FiO2 08/23/19 08:00 36.7 85 18 143/92 (109) 99 Room Air 08/23/19 01:00 36.4 83 18 142/92 (109) 98 Room Air 08/22/19 20:21 36.7 99 18 144/92 (109) 100 Room Air 08/22/19 14:26 36.5 88 18 150/83 (105) 100 Room Air I & O 08/23/19 07:00 Intake Total 3700 ml Output Total 3900 ml Balance -200 ml Labs Microbiology 08/21/19 Urine Culture - Final, Complete 3 or more isolates PRIMO MACHADO DO Aug 23, 2019 13:26
[2019-08-23] MEDS ORDERED: AMLO10TA7 PO (13:28)
[2019-08-23] MEDS ORDERED: DOCU100C37 PO (13:28)
[2019-08-23] MEDS ORDERED: OXC5T PO (13:28)
[2019-08-23] MEDS ORDERED: ACET-77 PO (13:28)
[2019-08-23] MEDS ORDERED: IBUP-844 PO (13:28)
--- NOTE | 2019-08-23 13:35 | Short Stay Summary ---
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 Assessment & Plan: Continue Bactroban x total of 5 days (pre and post op) (5) Pre-eclampsia affecting childbirth Status: Resolved Assessment & Plan: Continue Norvasc 10 mg daily (6) 38 to 41 weeks gestation of Status: Resolved (7) Previous section complicating , antepartum condition or complication Status: Resolved (8) Acute blood loss as cause of postoperative anemia Status: Acute Assessment & Plan: iron replacement Final Diagnosis: Previous section, preeclampsia Hospital Course Date of Admission: Aug 21, 2019 at 06:11 Admission Diagnosis : Family Physician/Provider: Belinda Forman Date of Discharge: 08/23/19 Discharge Diagnosis: [ ] Hospital Course: [ ] Labs and Pending Lab Test: Microbiology 08/21/19 Urine Culture - Final, Complete 3 or more isolates Home Meds Active Reported Vitamins ( Vit W-Ca,Fe,FA(<1 mg)) 1 Each Tablet 1 Each PO DAILY Assessment/Pt Instructions 1. Discharge to home 2. Routine post operative orders 3. Continue Norvasc, follow up in 1 week for incision check and BP check 4. Continue po iron Discharge Instructions Discharge Diet: No Restrictions Activity as Tolerated: Yes (no lifting over 25 lbs, nothing in th vagina, no driving for 1 week) Discharge Physical Examination General Appearance: Alert HEENT: Atraumatic Respiratory: Clear to Auscultation, Normal Air Movement Cardiovascular: Regular Rate, Normal S1, Normal S2 Abdominal: Normal Bowel Sounds, Other (Inc C/D/I) Extremities: Other (1+ edema) Skin: No Rashes Psych/Mental Status: Mental Status NL Allergies: Coded Allergies: Penicillins (Verified Allergy, Unknown, Rash, 08/17/19) Discharge Summary Date of Admission Aug 21, 2019 at 06:11 Date of Discharge 08/23/19 Discharge Date: Aug 23, 2019 Admission Diagnosis 1. previous section 2. preeclampsia Consults/Procedures Procedures Repeat low transverse section Clinical Quality Measures DVT/VTE Risk/Contraindication: Risk Factor Score Per Nursin RFS Level Per Nursing on Admit: 2=Moderate PRIMO MACHADO DO Aug 23, 2019 13:35
[2019-08-23] MEDS ORDERED: FERR-84 PO (13:37)
[2019-08-23 14:00] VITALS: BP 142/93
--- NOTE | 2019-08-23 14:55 | NUR ---
DISCHARGE INSTRUCTIONS REVIEWED WITH COPY TO PT. RXS GIVEN. STATES UNDERSTANDING OF ALL INSTRUCTIONS AND NEED TO F/U SCHEDULED AND NEEDED.
[2019-08-23 15:40] VITALS: BP 142/93
--- NOTE | 2019-08-23 15:40 | NUR ---
DISMISSED AMB FROM [facility] WITH INFANT IN STABLE CONDITION TO [facility] BY. JOSE AND STEPAN GARCIA.
== END 2019-08-23 15:40 | disposition home or self-care (01) | DRG 787 ==
LOC: WSo 05:25 → LDRP 05:27 → WSo 06:11 → LDRP 13:24
PROVIDERS: ADMIT Obstetrics & Gynecology; ATTEND Obstetrics & Gynecology
PROC: 10D00Z1 Extraction of Products of Conception, Low, Open Approach (ICD-10-PCS; principal; 2019-08-21 10:07)
DX: O34.211 Maternal care for low transverse scar from previous cesarean delivery (principal); D62 Acute posthemorrhagic anemia; O99.214 Obesity complicating childbirth; E66.01 Morbid (severe) obesity due to excess calories; O69.81X0 Labor and delivery complicated by cord around neck, without compression, not applicable or unspecified; O90.81 Anemia of the puerperium; O14.04 Mild to moderate pre-eclampsia, complicating childbirth; Z37.0 Single live birth; Z3A.38 38 weeks gestation of pregnancy; Z23 Encounter for immunization
CPT/HCPCS: 36415; 80053; 81000; 83615; 84550; 85025; 86850; 86900; 86901; 87088; 94664; 99212

== ENCOUNTER → 2021-04-03 | Outpatient (CLI) | payer BC, OTHER ==
[~2021-04-03] MED LIST changes: +ACET-78 PO; +AMLO-251 PO; +IBUP-844 PO; +OXC5T PO
--- NOTE | 2021-04-03 16:14 | Diagnostic Imaging Report ---
INDICATION: Anatomy survey. TECHNIQUE: Multiple real-time grayscale images were obtained over the gravid uterus. COMPARISON: None FINDINGS: A single live intrauterine gestation is visualized measuring 21 weeks 1 day with an estimated due date of 08/13/2021. heart rate measures 143 bpm. The placenta is posterior and not low lying. The cervix is closed and measures 6 cm in length. RADHA measures 10.2 cm. Cerebellum: visualized Lateral ventricles: visualized Cavum septum pellucidum: visualized Nasal Bone: Not visualized Face: Not visualized Stomach: Not visualized Kidneys: visualized Bladder: Not well visualized Three vessel cord: visualized Cord insertion: Not well visualized 4 chamber heart: Not well visualized outflow tracts: Not well visualized Spine, upper: Not well visualized Spine, lower: Not well visualized Upper extremities: Not well visualized Lower extremities: Not well visualized Biometrical measurements are as follows: Biparietal 4.70 cm, age 20 weeks 2 days. Head circumference 18.22 cm, age 20 weeks 5 days. Abdominal circumference 17.34 cm, age 22 weeks 2 days. Femur length 3.49 cm, age 21 weeks 1 days. Sonographic estimate age: 21 weeks 1 days. Sonographic estimated date of delivery: 08/13/2021. Estimated Weight: 431 gm (+/- 63 gm). LMP percentile: 81%. heart rate: 143 beats per minute. number: 1 of 1. IMPRESSION: 1. Single live intrauterine gestation measuring 21 weeks 1 day with an estimated due date of 08/13/2021. These are within range with the clinical dates. 2. Suboptimal anatomy scan due to position and patient body habitus. Recommend follow-up as indicated. Dictated by: Dictated on workstation # [id number]
== END ==
LOC: RAD 15:15
PROVIDERS: ATTEND Obstetrics & Gynecology
DX: Z34.92 Encounter for supervision of normal pregnancy, unspecified, second trimester (principal); Z3A.21 21 weeks gestation of pregnancy
CPT/HCPCS: 76805

== ENCOUNTER → 2021-05-10 | Outpatient (CLI) | payer OTHER ==
--- NOTE | 2021-05-10 16:31 | Diagnostic Imaging Report ---
INDICATION: screening. TECHNIQUE: Multiple real-time grayscale images were obtained over the gravid uterus. COMPARISON: None. FINDINGS: Tyler viable IUP measures 27 weeks 4 days with sonographic date of confinement 08/14/2021. The placenta is posterior. There is no abruption or previa. Heart rate is 150 BPM. Positioning is cephalic. Amniotic fluid volume appeared normal. Anatomical survey today appeared normal including adequate visualization of previously seen structures suboptimally visualized on comparison of 04/03/2021. Biometrical measurements are as follows: Biparietal 6.57 cm, age 26 weeks 4 days. Head circumference 25.43 cm, age 27 weeks 5 days. Abdominal circumference 23.09 cm, age 27 weeks 4 days. Femur length 5.29 cm, age 28 weeks 1 days. Sonographic estimate age: 27 weeks 4 days. Sonographic estimated date of delivery: 08/14/2021. Estimated Weight: 1104 gm (+/- +/- 161g gm). LMP percentile: 89%. heart rate: 150 beats per minute. number: 1 of 1. IMPRESSION: Tyler viable IUP showed normal growth with a normal anatomical survey and no pathological finding identified. Dictated by: Dictated on workstation # [id number]
== END ==
LOC: RAD 15:15
PROVIDERS: ATTEND Obstetrics & Gynecology
DX: Z36.9 Encounter for antenatal screening, unspecified (principal); Z3A.27 27 weeks gestation of pregnancy
CPT/HCPCS: 76805

== ENCOUNTER 2021-07-25 07:01 | Outpatient (CLI) | payer OTHER ==
[~2021-07-25] VITALS: Ht 160 cm; Wt 150.9 kg
[2021-07-25] MEDS ORDERED: ASPI-999 PO (17:32)
[2021-07-25] MEDS ORDERED: AMLO-250 PO (17:32)
[2021-07-25] MEDS ORDERED: FERR-84 PO (17:32)
== END 2021-07-25 17:35 | disposition home or self-care (01) ==
LOC: PREOP 07:01
PROVIDERS: ATTEND Obstetrics & Gynecology
DX: Z01.818 Encounter for other preprocedural examination (principal)

== ENCOUNTER → 2021-07-31 | Outpatient (CLI) | payer OTHER ==
[~2021-07-31] MED LIST changes: +AMLO-250 PO; +ASPI-999 PO
== END ==
LOC: LABNPT 10:44
PROVIDERS: ATTEND Obstetrics & Gynecology
DX: I10 Essential (primary) hypertension (principal)
CPT/HCPCS: 82570; 84156

== ENCOUNTER 2021-08-09 02:44 | Inpatient (IN) | payer OTHER ==
[~2021-08-09] VITALS: Ht 157.5 cm; Wt 159.9 kg
[2021-08-09] VITALS (8 sets, daily range): BP systolic 104–150; BP diastolic 67–878
--- OUTSIDE RECORDS SUMMARY | 2021-08-09 10:48 | XMS REPORT | Clinical Summary ---
Author Author [facility] Organization [facility] Address Unknown Phone Unavailable Care Team Providers Care Surety Bond Agent Name Role Phone Malina Cortez PCP Source Comments Some departments are not documenting in the electronic medical record. If you d o not see the information that you expected, contact Release of Information in [facility] [employer] Information Management department at [phone] for further assistan ce in locating additional records.[facility] Allergies Not on File Medications Not on file Active Problems Not on file Family History Medical History Relation Name Comments Cancer Maternal Aunt sarcoma Cancer-Breast Maternal Aunt Cancer-Breast Maternal Grandmother Cancer-Lung Paternal lobectomy Grandfather Cancer-Prostate Paternal Grandfather Cancer-Thyroid Paternal Grandmother Relation Name Status Comments Brother Alive Father Alive thyroidectomy-nodul esskin cancer? Maternal Aunt Alive PALB2+ Maternal Grandfather (Age 77) Maternal Grandmother (Age 81) Maternal Uncle Alive Maternal Uncle liver cancer- lifes tyle concerns (Age 59) Mother Chrystal Peak Alive PALB2+ Paternal Aunt Alive thyroid complicatio ns Paternal Aunt Alive Paternal Grandfather Alive Paternal Grandmother Alive thyroid complica tions Paternal Uncle Alive Paternal Uncle Alive Son Alive Son Alive Son Alive Social History Date Tobacco Use Types Packs/Day Years Used Never Assessed Sex Assigned at Date Recorded Not on file Last Filed Vital Signs Not on file Plan of Treatment Health Maintenance Due Date Last Done Comments HIV SCREENING 01/19/2004 DTAP/TDAP VACCINES (1 - 2007 Tdap) HEPATITIS C SCREENING 2007 PHYSICAL (COMPREHENSIVE) 2007 EXAM CERVICAL CANCER SCREENING 2010 INFLUENZA VACCINE 06/09/2021 08/23/2019, 09/11/2014 Results Not on filefrom Last 3 Months Insurance Type Payer Benefit Subscriber ID Effective Phone Address Plan / Dates Group PPO BCBS [facility] [id number] 2019- [facility] Present BLUE Advance Directives Patient Urgent Care Technician Explanation Type Date Recorded Advance Directive/DPOA
[2021-08-09] MEDS ORDERED: CITRIC ACID/SOB CIT (BICITRA) 30 ML UDC PO ONE (12:15)
[2021-08-09] MEDS ORDERED: LACTATED RINGERS 1,000 ML IV PRN ×2 (12:15)
[2021-08-09] MEDS ORDERED: METOCLOPRAMIDE INJ 10 MG/2 ML (REGLAN) IV ONE (12:15)
[2021-08-09] MEDS ORDERED: CATHETER FLUSH 10 ML SYR IV PRN (12:15)
[2021-08-09] MEDS ORDERED: ceFAZolin 2 GM IV Premixed 50 ML IV ONE (12:15)
--- NOTE | 2021-08-09 12:33 | History & Physical-OB ---
OB - Chief Complaint & HPI Date/Time Date of Admission: Date of Admission: Aug 09, 2021 at 11:07 Date seen by a Provider: Aug 09, 2021 Time Seen by a Provider: 12:30 Chief Complaint/History OB-Reason for Admission/Chief: Section Hx : 4 Hx Para: 3 Expected Date of Delivery: Aug 15, 2021 Gestational Age in Weeks: 39 Gestational Age in Days: 1 Indication for : desires repeat , other (history of chronic hypertension with exacerbation of gestational hypertension during this pregna ncy. Has been on Norvasc 5 and then 10 mg in third trimester. testing has been reassuring until yesterday. NST was non reactive, but plan is to be repeated today. Has been on prophylactic ASA. ) Admission Nurse Assessment Rev: Yes History of Labs A+/- HBsAg - Rub NI VDRL NR Hep C - GBS - Has not had preeclampsia, but does have baseline elevated urinary protein. Last P/C ratio was elevated but not diagnostic Allergies and Home Medications Allergies Coded Allergies: Penicillins (Verified Allergy, Unknown, Rash, 08/17/19) Patient Home Medication List Home Medication List Reviewed: Yes Amlodipine Besylate (Amlodipine Besylate) 5 Mg Tablet, 5 MG PO DAILY, (Reported) Entered as Reported by: ROSE TREVINO on 07/25/21 173 Aspirin (Aspirin) 81 Mg Tab.chew, 81 MG PO DAILY, (Reported) Entered as Reported by: ROSE TREVINO on 07/25/21 1732 Ferrous Sulfate (Iron) 325 Mg Tablet, 325 MG PO DAILY, (Reported) Entered as Reported by: ROSE TREVINO on 07/25/21 1732 Vit W-Ca,Fe,FA(<1 mg) ( Vitamins) 1 Each Tablet, 1 EACH PO DAILY, (Reported) Entered as Reported by: ROSE TREVINO on 08/17/19 1033 OB - History Hx of Present Ultrasounds: Normal mid trimester US Obstetrical Complications: None, Gestational Hypertension Medical Complications: Cardiovascular Information Induced Hypertension: Yes Maternal Gestational Diabetes: No Hemorrhage: No Obstetrical History Hx : 4 Hx Para: 3 Hx # Term Pregnancies: 3 Hx # Pregnancies: 0 Number of Living Children: 3 Hx Multiple Gestation: No Hx Ectopic : No Hx Stillbirth: No Hx Complication: No Hx Induced Hypertens: Yes Hx Maternal Gestational Diabet: No Hx Hemorrhage: No Delivery History Hx Dystocia: Yes Hx Forceps Assisted Delivery: No Hx Vacuum Extraction Assisted: No Hx Placenta Abnormality: No Hx Distress: No Hx Section: Yes Hx Vaginal Delivery Post C-Sec: No Hx Blood Disorders: Yes (anemia) Patient Past Medical History hypertension Social History/Family History Alcohol Use: Denies Use Recreational Drug Use: No Smoking Cessation: Never smoker 2nd Hand Smoke Exposure: No Immunizations Hepatitis A: No Hepatitis B: No Tetanus Booster (TDap): Less than 5yrs (05/29) Rubella: not immune RPR/VDRL: Negative GBS Status: Negative HBsAG: Negative OB - Admission Exam Physical Exam Vitals: see RN notes HEENT: NCAT Heart: Rhythm Normal Lungs: Clear Abdomen: Gravid Extremities: Edema Reflexes: Normal Cervical Dilatation: other (NE) Membranes: Intact Heart Rate: 130's Accelerations: Accelerations Present Decelerations: No Decelerations Short Term Variability: Present Travel Med Surg Rn Variability: Average (6-25) Contractions on Admission: >10 Minutes Apart OB - Assessment/Plan/Diagnosis Assessment Assessment: section, other (chronic hypertension with exacerbation) Admission Dx 39 week gestation chronic hypertension with exacerbation previous section Admission Status: Inpatient Order (span 2 midnights) Reason for Inpatient Admission: post operative C Section Plan Plan: Section Other Plan Risks of bleeding, infection, injury to bowel, bladder and ureter. Has been NPO after midnight Has held her ASA Prophylactic antibiotics and SCDs proper consents are obtained. PRIMO MACHADO DO Aug 09, 2021 12:32
[2021-08-09 12:37] LABS: BASOPHILS % (AUTO) 0 % (0-10); EOSINOPHILS # (AUTO) 0.1 10^3/uL (0.0-0.3); EOSINOPHILS % (AUTO) 1 % (0-10); HEMATOCRIT 40 % (35-52); HEMOGLOBIN 12.5 g/dL (11.5-16.0); LYMPHOCYTES # (AUTO) 1.2 10^3/uL (1.0-4.0); LYMPHOCYTES % (AUTO) 13 % (12-44); MEAN CORPUSCULAR HEMOGLOBIN 25 pg (25-34); MEAN CORPUSCULAR HGB CONC 31 g/dL (32-36); MEAN CORPUSCULAR VOLUME 80 fL (80-99); MEAN PLATELET VOLUME 10.8 fL (9.0-12.2); MONOCYTES # (AUTO) 0.4 10^3/uL (0.0-1.0); MONOCYTES % (AUTO) 4 % (0-12); NEUTROPHILS % (AUTO) 81 % (42-75); PLATELET COUNT 324 10^3/uL (130-400); WHITE BLOOD COUNT 8.6 10^3/uL (4.3-11.0)
[2021-08-09] MEDS ORDERED: OXYTOCIN PRE-MIX DRIP 1,000 ML IV ONE (12:57)
[2021-08-09] MEDS ORDERED: fentaNYL INJ 100 MCG/2 ML AMP ONE (12:57)
[2021-08-09 13:21] LABS: CLARITY,URINE CLEAR; COLOR,URINE YELLOW; GLUCOSE, URINE (UA) NEGATIVE (NEGATIVE); KETONES,URINE TRACE (NEGATIVE); LEUKOCYTE ESTERASE ,URINE TRACE (NEGATIVE); NITRITE,URINE NEGATIVE (NEGATIVE); PROTEIN,URINE 2+ (NEGATIVE)
[2021-08-09] MEDS ORDERED: PHENYLEPHRINE 100 MCG/ML 10 ML (ANESTHESIA) SYR ONE (13:21)
[2021-08-09 13:51] LABS: BACTERIA,URINE NEGATIVE /HPF; BILIRUBIN,URINE 1+ (NEGATIVE); WBC,URINE RARE /HPF
[2021-08-09] MEDS ORDERED: BUPIVACAINE 0.5% 30 ML (SENSORCAINE) VIAL ONE (14:00)
[2021-08-09] MEDS ORDERED: MEASLES,MUMPS,RUBELLA 1 EA INJ SC SCH (14:30)
[2021-08-09] MEDS ORDERED: NALOXONE 0.4 MG/ML 1 ML (NARCAN) VIAL IV PRN (14:30)
[2021-08-09] MEDS ORDERED: TETANUS,DIPTH,PERTUSS P/F (BOOSTRIX) 0.5 ML VIAL IM SCH (14:30)
[2021-08-09] MEDS ORDERED: OXYTOCIN PRE-MIX DRIP 500 ML IV SCH (14:30)
[2021-08-09] MEDS ORDERED: BISACODYL 10 MG SUPP (DULCOLAX) PR PRN (14:30)
[2021-08-09] MEDS ORDERED: morphine INJ 4 MG/ML 1 ML (VIAL/SYRINGE) IV PRN (14:30)
--- NOTE | 2021-08-09 14:39 | Cesarean Section Operative ---
Procedure Procedure Note Pre-operative Diagnosis: Jazmine Menjivar is a 31 /Para 4 / 3,Gestational Age 39 1/7 weeks, history of previous section x 3, gestational/chronic hypertension Post-operative Diagnosis: same, compound presentation (hand) Procedure: repeat low transverse section Physician: PRIMO MACHADO Estimated blood loss: 500 mL Disposition: stable Findings: Viable male , Apgars 8/9, weight 10#10oz, intact placenta, 3vc, normal appearing uterus, tubes, and ovaries. loose nuchal cord x 2 reduced. Hand delivered first at time of uterine incision (left) and was then reduced to deliver the fetus. Indications:Jazmine Menjivar is a 31 /Para 4 / 3,Gestational Age 39 1/7 weeks, history of previous section x 3, gestational/chronic h ypertension Procedure Details: The patient was seen in pre-op and the procedure was discussed with the patient in full, including the risks, benefits, and alternatives. All questions were answered. The patient was taken to the operating room and a time out was performed, verifying patient and procedure. After spinal anesthesia was placed by our anesthesia colleagues, the patient was placed in the dorsal supine with leftward tilt for uterine displacement.~ Her abdomen was then prepped and draped in the typical sterile fashion. A Pfannenstiel skin incision was made using a scalpel and carried down through the underlying fascia. The fascia was incised in the midline and tented up using Cristiana clamps. On both the inferior and superior fascia side the rectus muscle was dissected off bluntly and sharply using Grady scissors. Thefascia was very densely adherent so blunt and sharp dissection as well as cautery was used. The peritoneum was identified and entered bluntly in the midline. This was then stretched laterally using manual strength. There was an omental adhesions that was broad and had to be dissected off the midline fascia before entering the abdominal cavity. Then an extra large Armando retractor was placed and the lower uterine segment was visualized. A bladder flap was created with the use of Metzenbaum scissors.~ A scalpel was utilized to make a low transverse uterine incision. Amniotomy was performed with an Allis clamp with return of clear fluid. The infant's head was grasped and brought to the level of the incision. The silastic suction was applied to help in facilitation of delivery of the head. Fundal pressure was applied and infant was delivered without difficulty. Mouth and nares were suctioned with bulb suction. After the umbilical cord was clamped and cut, the was handed off to the pediatric staff. A sample of cord blood was then obtained. The placenta was delivered intact via uterine massage. The uterus was cleared of all clots and debris. The uterine incision was closed using 0 PDS in a running locked fashion. A second imbricated layer was placed using 0 Vicryl in a running fashion as well. The uterus was flexed forward and the posterior rectouterine space was inspected and cleared of all clots and debris. Again the hysterotomy site was examined and hemostasis was observed. The bilateral tubes and ovaries appeared normal. The abdominal gutters were cleared of all clots and debris. A final check of the uterine incision showed it to be hemostatic. The peritoneum was closed using 3-0 Vicryl in a running fashion. The fascia was closed with 0 Vicryl in a running fashion. The subcutaneous space was hemostatic, and irrigated. The subcutaneous space was closed with) plain in several single interrupted stitches. The skin was then closed using 4-0 Monocryl in a running subcuticular fashion. The skin edges were reapproximated together and were hemostatic. A pressure dressing was applied. All sponge, lap and needle counts were correct at the end of the procedure per nursing. Vitals - Labs Vital Signs - I&O Vital Signs Date Time Temp Pulse Resp B/P (MAP) Pulse Ox O2 Delivery O2 Flow Rate FiO2 08/09/21 11:30 36.9 93 20 98 Room Air Labs Laboratory Tests 08/09/21 12:15: Urine Color YELLOW, Urine Clarity CLEAR, Urine pH 6.0, Urine Specific Alexander >=1.030, Urine Protein 2+H, Urine Glucose (UA) NEGATIVE, Urine Ketones TRACEH, Urine Nitrite NEGATIVE, Urine Bilirubin 1+H, Urine Urobilinogen 1.0, Urine Leukocyte Esterase TRACEH, Urine RBC (Auto) NEGATIVE, Urine RBC NONE, Urine WBC RARE, Urine Squamous Epithelial Cells 10-25H, Urine Crystals NONE, Urine Bacteria NEGATIVE, Urine Casts NONE, Urine Mucus NEGATIVE, Urine Culture Indicated NO 08/09/21 12:26: White Blood Count 8.6, Red Blood Count 5.01, Hemoglobin 12.5, Hematocrit 40, Mean Corpuscular Volume 80, Mean Corpuscular Hemoglobin 25, Mean Corpuscular Hemoglobin Concent 31L, Red Cell Distribution Width 19.3H, Platelet Count 324, Mean Platelet Volume 10.8, Immature Granulocyte % (Auto) 0, Neutrophils (%) (Auto) 81H, Lymphocytes (%) (Auto) 13, Monocytes (%) (Auto) 4, Eosinophils (%) (Auto) 1, Basophils (%) (Auto) 0, Neutrophils # (Auto) 7.0, Lymphocytes # (Auto) 1.2, Monocytes # (Auto) 0.4, Eosinophils # (Auto) 0.1, Basophils # (Auto) 0.0, Immature Granulocyte # (Auto) 0.0 PRIMO MACHADO DO Aug 09, 2021 14:39
[2021-08-09] MEDS ORDERED: OXC5T PO (14:41)
[2021-08-09] MEDS ORDERED: ACET-93 PO (14:41)
[2021-08-09] MEDS ORDERED: IBUP-844 PO (14:41)
[2021-08-09] MEDS ORDERED: DOCU100C37 PO (14:41)
--- NOTE | 2021-08-09 14:43 | Discharge Inst-Women's Service ---
Discharge Inst-Women's Serv Depart Medication/Instructions New, Converted or Re-Newed RX: Transmitted to Pharmacy Final Diagnosis previous section chronic hypertension with exacerbation obesity Problems Reviewed?: Yes Consults/Follow Up Additional Follow Up: Yes (1 week for incision check and BP check; 6 week post exam) Activity Activity: Activity as Tolerated Driving Instructions: No Driving for 1 Week NO SMOKING: NO SMOKING Nothing Inside Vagina: No Douching, No [place], No Tampons Diet Discharge Diet: No Restrictions Symptoms to Report to : Bleeding Excessive, Pain Increased, Fever Over 101 Degrees F, Vaginal Bleeding Increase, Cramps in Feet or Legs, Vaginal Discharge Foul For Any Problems or Questions: Contact Your Physician Skin/Wound Care Infection Signs and Symptoms: Increased Redness, Foul Odor of Wound, Increased Drainage, Skin Itchy or Has a Rash, Increased Swelling, Temperature Above 101 F Operative Area Clean and Dry: Keep Incision Clean/Dry Stitches/[place]/Dermabond: Dermabond Bathing Instructions: PRIMO Rodriguez DO Aug 09, 2021 14:43
[2021-08-09] MEDS: KETOROLAC 30 MG/ML VIAL IV SCH ×2 (17:31→23:32)
[2021-08-09 18:13] LABS: ALBUMIN 2.7 GM/DL (3.2-4.5); POTASSIUM 3.7 MMOL/L (3.6-5.0)
[2021-08-09 18:14] LABS: CALCIUM 9.1 MG/DL (8.5-10.1)
[2021-08-09 18:16] LABS: TOTAL PROTEIN 5.6 GM/DL (6.4-8.2)
[2021-08-09 18:17] LABS: BILIRUBIN,TOTAL 0.4 MG/DL (0.1-1.0)
[2021-08-09 18:19] LABS: CREATININE SERUM 0.67 MG/DL (0.60-1.30)
[2021-08-09] MEDS ORDERED: CATHETER FLUSH 10 ML SYR IV SCH (22:00)
[2021-08-09] MEDS: DOCUSATE SODIUM 100 MG (COLACE) CAP PO SCH (23:32)
[2021-08-09] MEDS: ACETAMINOPHEN 500 MG TAB (TYLENOL) PO SCH (23:32)
[2021-08-10 03:40] VITALS: BP 138/73
[2021-08-10] MEDS: KETOROLAC 30 MG/ML VIAL IV SCH (05:45)
[2021-08-10 07:01] LABS: BASOPHILS % (AUTO) 0 % (0-10); EOSINOPHILS # (AUTO) 0.1 10^3/uL (0.0-0.3); EOSINOPHILS % (AUTO) 1 % (0-10); HEMATOCRIT 33 % (35-52); HEMOGLOBIN 10.6 g/dL (11.5-16.0); LYMPHOCYTES # (AUTO) 1.2 10^3/uL (1.0-4.0); LYMPHOCYTES % (AUTO) 15 % (12-44); MEAN CORPUSCULAR HEMOGLOBIN 25 pg (25-34); MEAN CORPUSCULAR HGB CONC 32 g/dL (32-36); MEAN CORPUSCULAR VOLUME 80 fL (80-99); MEAN PLATELET VOLUME 10.4 fL (9.0-12.2); MONOCYTES # (AUTO) 0.6 10^3/uL (0.0-1.0); MONOCYTES % (AUTO) 7 % (0-12); NEUTROPHILS # (AUTO) 6.3 10^3/uL (1.8-7.8); NEUTROPHILS % (AUTO) 77 % (42-75); PLATELET COUNT 257 10^3/uL (130-400); WHITE BLOOD COUNT 8.3 10^3/uL (4.3-11.0)
[2021-08-10 07:15] LABS: ALBUMIN 2.6 GM/DL (3.2-4.5); POTASSIUM 4.1 MMOL/L (3.6-5.0)
[2021-08-10 07:16] LABS: CALCIUM 9.1 MG/DL (8.5-10.1)
[2021-08-10 07:17] LABS: TOTAL PROTEIN 5.5 GM/DL (6.4-8.2)
[2021-08-10 07:19] LABS: BILIRUBIN,TOTAL 0.4 MG/DL (0.1-1.0)
[2021-08-10 07:21] LABS: CREATININE SERUM 0.69 MG/DL (0.60-1.30)
[2021-08-10] MEDS: FERROUS SULF 325 MG (IRON) TAB PO SCH (08:27)
[2021-08-10] MEDS: DOCUSATE SODIUM 100 MG (COLACE) CAP PO SCH ×2 (08:28→21:35)
[2021-08-10] MEDS: ACETAMINOPHEN 500 MG TAB (TYLENOL) PO SCH ×3 (08:28→21:45)
[2021-08-10] MEDS: amLODIPine 10 MG (NORVASC) TAB PO SCH (08:28)
[2021-08-10 08:35] VITALS: BP 139/78
--- NOTE | 2021-08-10 08:37 | Progress Note ---
Standard Progress Note Progress Notes/Assess & Plan Date Seen by a Provider: Aug 10, 2021 Time Seen by a Provider: 08:36 Progress/Assessment & Plan This patient is without complaint. She is ambulating, voiding, tolerating oral intake well and has good pain control. Vital Signs Date Time Temp Pulse Resp B/P (MAP) Pulse Ox O2 Delivery O2 Flow Rate FiO2 08/10/21 03:40 36.8 93 20 138/73 (94) 98 Room Air 08/09/21 22:10 37.0 93 20 150/88 (108) 98 Room Air 08/09/21 17:30 36.5 85 20 132/84 (100) 98 Room Air 08/09/21 15:16 36.6 20 136/878 (633) 98 Room Air 08/09/21 15:13 Room Air 08/09/21 15:00 36.5 20 131/93 (106) 98 Room Air 08/09/21 15:00 Room Air 08/09/21 14:44 36.6 20 133/87 (102) 98 Room Air 08/09/21 14:43 Room Air 08/09/21 14:30 36.6 20 113/69 (84) 98 Room Air 08/09/21 14:30 Room Air 08/09/21 14:16 Room Air 08/09/21 14:16 36.9 20 104/67 (79) 98 Room Air 08/09/21 11:30 36.9 93 20 98 Room Air I & O 08/10/21 07:00 Intake Total 50 ml Output Total 25 ml Balance 25 ml Vital signs are stable. Patient is afebrile. The abdomen is benign. Extremities show no clubbing cyanosis. There is no Homans' sign. Assessment and plan Postoperative day #1 status post delivery doing well. Plan is for routine convalescent care ISMAEL ALEGRE MD Aug 10, 2021 08:37
--- NOTE | 2021-08-10 12:24 | Anesthesia-Regional Post-Op ---
Regional Patient Condition Mental Status: Alert, Oriented x3 Circulation: Same as Pre-Op Headache: Absent Sensation: Full Recovery Motor Block: Absent Post Op Complications Complications None Follow Up Care/Instructions Patient Instructions None needed. Anesthesia/Patient Condition Patient is doing well, no complaints, stable vital signs, no apparent adverse anesthesia problems. ANANYA OLMOS DO Aug 10, 2021 12:24
[2021-08-10] MEDS: IBUPROFEN 600 MG (MOTRIN) TAB PO SCH ×2 (12:27→18:21)
[2021-08-10 18:00] VITALS: BP 159/77
[2021-08-10] MEDS ORDERED: IBUPROFEN 600 MG (MOTRIN) TAB PO SCH (18:00)
[2021-08-10 21:35] VITALS: BP 133/78
[2021-08-11] MEDS: IBUPROFEN 600 MG (MOTRIN) TAB PO SCH ×3 (00:21→12:58)
[2021-08-11 03:20] VITALS: BP 132/75
--- NOTE | 2021-08-11 09:01 | Progress Note ---
Standard Progress Note Progress Notes/Assess & Plan Date Seen by a Provider: Aug 11, 2021 Time Seen by a Provider: 09:00 Progress/Assessment & Plan This patient is without complaint. She is ambulating, voiding, tolerating oral intake well and has good pain control. Vital Signs Date Time Temp Pulse Resp B/P (MAP) Pulse Ox O2 Delivery O2 Flow Rate FiO2 08/10/21 03:40 36.8 93 20 138/73 (94) 98 Room Air 08/09/21 22:10 37.0 93 20 150/88 (108) 98 Room Air 08/09/21 17:30 36.5 85 20 132/84 (100) 98 Room Air 08/09/21 15:16 36.6 20 136/878 (633) 98 Room Air 08/09/21 15:13 Room Air 08/09/21 15:00 36.5 20 131/93 (106) 98 Room Air 08/09/21 15:00 Room Air 08/09/21 14:44 36.6 20 133/87 (102) 98 Room Air 08/09/21 14:43 Room Air 08/09/21 14:30 36.6 20 113/69 (84) 98 Room Air 08/09/21 14:30 Room Air 08/09/21 14:16 Room Air 08/09/21 14:16 36.9 20 104/67 (79) 98 Room Air 08/09/21 11:30 36.9 93 20 98 Room Air I & O 08/10/21 07:00 Intake Total 50 ml Output Total 25 ml Balance 25 ml Vital signs are stable. Patient is afebrile. The abdomen is benign. Extremities show no clubbing cyanosis. There is no Homans' sign. Assessment and plan Postoperative day #1 status post delivery doing well. Plan is for routine convalescent care August 11, 2021 This patient is without complaint. She is ambulating, voiding, tolerating oral intake well and has good pain control. She denies headache, denies shortness of breath, denies nausea vomiting, and denies headache. She is requesting discharge home. Vital Signs Date Time Temp Pulse Resp B/P (MAP) Pulse Ox O2 Delivery O2 Flow Rate FiO2 08/11/21 03:20 36.5 86 16 132/75 (94) 98 Room Air 08/10/21 21:35 36.7 103 16 133/78 (96) 99 Room Air 08/10/21 18:00 36.7 89 16 159/77 (104) 98 Room Air I & O 08/11/21 07:00 Intake Total 1200 ml Output Total 800 ml Balance 400 ml Vital signs are stable. Patient is afebrile. Blood pressures are normalizing. Abdomen is benign Extremities show no clubbing or cyanosis. There is no Homans' sign. Assessment and plan Postoperative day #2 status post repeat delivery doing well. Plan is for discharge home with follow-up in clinic ISMAEL ALEGRE MD Aug 11, 2021 09:01
[2021-08-11 09:52] VITALS: BP 142/91
[2021-08-11] MEDS: ACETAMINOPHEN 500 MG TAB (TYLENOL) PO SCH (09:54)
[2021-08-11] MEDS: amLODIPine 10 MG (NORVASC) TAB PO SCH (09:54)
[2021-08-11] MEDS: FERROUS SULF 325 MG (IRON) TAB PO SCH (09:54)
[2021-08-11] MEDS: DOCUSATE SODIUM 100 MG (COLACE) CAP PO SCH (09:55)
== END 2021-08-11 13:20 | disposition home or self-care (01) | DRG 788 ==
LOC: UNDOADMIN 10:30 → LDRP 10:30
PROVIDERS: ADMIT Obstetrics & Gynecology; ATTEND Obstetrics & Gynecology
PROC: 10D00Z1 Extraction of Products of Conception, Low, Open Approach (ICD-10-PCS; principal; 2021-08-09 13:08)
DX: O34.211 Maternal care for low transverse scar from previous cesarean delivery (principal); O13.4 Gestational [pregnancy-induced] hypertension without significant proteinuria, complicating childbirth; Z3A.39 39 weeks gestation of pregnancy; Z37.0 Single live birth
CPT/HCPCS: 36415; 80053; 81000; 85025; 86850; 86900; 86901; 90707

== ENCOUNTER 2023-03-11 13:15 | Emergency (ER) | payer OTHER ==
[~2023-03-11] VITALS: Ht 157 cm; Wt 113.0 kg
[~2023-03-11 13:15] MED LIST changes: +ACET-93 PO
--- NOTE | 2023-03-11 14:13 | ED General ---
General Chief Complaint: Allergic Reaction Stated Complaint: STREP | THROAT SWELLING | DIFFICULTY SWALLOWING Nursing Triage Note: SENT OVER FROM [facility]. DX WITH STREP THERE YESTERDAY. PT TODAY STATES SHE IS HAVING MORE DIFFICULTY BREATHING AND FEELS LIKE HER THROAT IS SWELLING. [facility] THINKS SHE IS HAVING AN ALLERGIC REACTION TO THE CEPHALEXIN THEY PRESCRIBED. Source of Information: Patient Exam Limitations: No Limitations (KRISTY NOLEN) History of Present Illness Date Seen by Provider: March 11, 2023 Time Seen by Provider: 14:10 Initial Comments Patient is a 33-year-old female presents ED with swollen neck, swollen tonsils, lip swelling and tongue swelling. Patient states she was diagnosed with strep throat yesterday. Symptoms started a day prior with sore throat fever chills body aches. Was treated with Keflex by [facility] yesterday. She took 1 dose last night and 1 dose this morning. About 1 hour before arrival started having difficulty swallowing, lip swelling and tongue swelling. Concerning for allergic reaction to Keflex. [facility] sent patient over to the ER for further evaluation. She states she is continue feeling fevers with a temperature 101 at home. She is feels like she is drooling especially at night. No evidence of respiratory distress, stridor. She denies cough or shortness of breath. she states her lips feel swollen her face feels swollen. She appears to be tolerating secretion. Pain with eating or drinking but is able to eat and drink a little. Denies cough, abdominal pain, vomiting, diarrhea, back pain (KRISTY NOLEN) Allergies and Home Medications Allergies Coded Allergies: Penicillins (Verified Allergy, Unknown, Rash, 08/17/19) Patient Home Medication List Home Medication List Reviewed: Yes (KRISTY NOLEN) Acetaminophen (Acetaminophen) 500 Mg Tablet, 1,000 MG PO Q8HR Prescribed by: PRIMO MACHADO on 08/09/21 1441 Amlodipine Besylate (Amlodipine Besylate) 5 Mg Tablet, 5 MG PO DAILY, (Reported) Entered as Reported by: ROSE TREVINO on 07/25/21 1732 Clindamycin HCl (Clindamycin HCl) 300 Mg Capsule, 300 MG PO TID Prescribed by: EAGLE MARTINS on 03/11/23 1544 Docusate Sodium (Docusate Sodium) 100 Mg Capsule, 100 MG PO BID Prescribed by: PRIMO MACHADO on 08/09/21 1441 Ferrous Sulfate (Iron) 325 Mg Tablet, 325 MG PO DAILY, (Reported) Entered as Reported by: ROSE TREVINO on 07/25/21 1732 Ibuprofen (Ibu) 600 Mg Tablet, 600 MG PO Q6HR Prescribed by: PRIMO AMCHADO on 08/09/21 1441 Oxycodone Hcl (Oxyir Tablet) 5 Mg Tab, 5 MG PO Q4HR PRN for PAIN-SEE DOSE INSTRUCTIONS Prescribed by: PRIMO MACHADO on 08/09/21 1441 Prednisone (Prednisone) 20 Mg Tab, 40 MG PO DAILY Prescribed by: EAGLE MARTINS on 03/11/23 1544 Vit W-Ca,Fe,FA(<1 mg) ( Vitamins) 1 Each Tablet, 1 EACH PO DAILY, (Reported) Entered as Reported by: ROSE TREVINO on 08/17/19 1033 Review of Systems Review of Systems Constitutional: chills; No diaphoresis; fever EENTM: mouth pain, throat swelling; No ear pain, No blurred vision, No double vision, No mouth swelling Respiratory: No cough, No short of breath Gastrointestinal: No abdominal pain, No diarrhea, No nausea, No vomiting Genitourinary: No decreased output, No discharge Musculoskeletal: No back pain, No joint pain Skin: No change in color (KRISTY NOLEN) All Other Systems Reviewed Negative Unless Noted: Yes (KRISTY NOLEN) Past Mpjtdwq-Cmnmge-Wrrgls Hx Patient Social History Tobacco Use?: No Substance use?: No Alcohol Use?: No (KRISTY NOLEN) Immunizations Up To Date Tetanus Booster (TDap): Less than 5yrs PED Vaccines UTD: Yes First/Initial COVID19 Vaccinat: JANUARY 2021 Second COVID19 Vaccination Ifeanyi: FEBRUARY 2021 COVID19 Vaccine 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: 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 (KRISTY NOLEN) Seasonal Allergies Seasonal Allergies: Yes (KRISTY NOLEN) Past Medical History Surgeries: Yes (c/s x3) Section Respiratory: No Currently Using CPAP: No Currently Using BIPAP: No Cardiac: Yes (HTN WITH ) Neurological: No Last Menstrual Period: Mar 04, 2023 Female Reproductive Disorders: Denies Sexually Transmitted Disease: No HIV/AIDS: No Genitourinary: No Gastrointestinal: No Musculoskeletal: No Endocrine: No HEENT: No Loss of Vision: Denies Hearing Impairment: Denies Cancer: No Psychosocial: No Integumentary: Yes Eczema Blood Disorders: No (KRISTY NOLEN) Family Medical History Cardiovascular disease MATERNAL GRANDFATHER Coronary thrombosis MATERNAL GRANDFATHER Diabetes mellitus MATERNAL GRANDFATHER FHx: multiple sclerosis 19 MOTHER Hypercholesterolemia MATERNAL GRANDFATHER Myocardial infarction MATERNAL GRANDFATHER Neoplasm MATERNAL GRANDMOTHER (BREAST CANCER) PATERNAL GRANDFATHER (LUNG CANCER) Respiratory disorder PATERNAL GRANDFATHER Thyroid disease 19 FATHER PATERNAL GRANDMOTHER Physical Exam Vital Signs Vital Signs - First Documented 03/11/23 13:29 Temp 37.1 Pulse 120 Resp 16 B/P (MAP) 160/89 (112) Pulse Ox 99 O2 Delivery Room Air (ADALGISA MUÑOZ MD) Vital Signs Capillary Refill : Less Than 3 Seconds (KRISTY NOLEN) Height, Weight, BMI Height: 5'2.00" Weight: 320lbs. 0.4oz. 145.015341oj; 45.00 BMI Method:Stated General Appearance: No Apparent Distress, WD/WN Eyes: Bilateral Eye Normal Inspection, Bilateral Eye PERRL, Bilateral Eye Abnormal EOM HEENT: PERRL/EOMI, TMs Normal, Other (Bilateral tonsillar swelling with exudate. No uvula deviation. Tolerate secretion. No significant lip or tongue swelling. Bilateral cervical adenopathy. No erythema to the anterior neck. No meningeal signs.) Neck: Full Range of Motion, Normal Inspection, Non Tender, Supple Respiratory: Chest Non Tender, Lungs Clear, Normal Breath Sounds, No Accessory Muscle Use, No Respiratory Distress Cardiovascular: Regular Rate, Rhythm, No Edema, No Gallop, No JVD Gastrointestinal: Normal Bowel Sounds, No Organomegaly, No Pulsatile Mass, Non Tender Rectal: Normal Exam Back: Normal Inspection, No CVA Tenderness, No Vertebral Tenderness Extremity: Normal Capillary Refill, Normal Range of Motion, Non Tender Skin: Normal Color, Warm/Dry (KRISTY NOLEN) Focused Exam Lactate Level 03/11/23 14:26: Lactic Acid Level 0.63 (ADALGISA MUÑOZ MD) Lactic Acid Level Laboratory Tests Test 03/11/23 14:26 Lactic Acid Level 0.63 MMOL/L (0.50-2.00) (ADALGISA MUÑOZ MD) Progress/Results/Core Measures Suspected Sepsis SIRS Temperature: Pulse: 120 Respiratory Rate: 16 Laboratory Tests 03/11/23 14:12: White Blood Count 15.4H Blood Pressure 160 /89 Mean: 112 03/11/23 14:26: Lactic Acid Level 0.63 Laboratory Tests 03/11/23 14:12: Creatinine 0.79, Platelet Count 376, Total Bilirubin 0.4 (KRISTY NOLEN) Results/Orders Lab Results Laboratory Tests Test 03/11/23 14:12 03/11/23 14:26 Range/Units White Blood Count 15.4 H 4.3-11.0 10^3/uL Red Blood Count 4.77 3.80-5.11 10^6/uL Hemoglobin 10.6 L 11.5-16.0 g/dL Hematocrit 35 35-52 % Mean Corpuscular Volume 73 L 80-99 fL Mean Corpuscular Hemoglobin 22 L 25-34 pg Mean Corpuscular Hemoglobin Concent 31 L 32-36 g/dL Red Cell Distribution Width 16.4 H 10.0-14.5 % Platelet Count 376 130-400 10^3/uL Mean Platelet Volume 9.6 9.0-12.2 fL Immature Granulocyte % (Auto) 0 % Neutrophils (%) (Auto) 84 H 42-75 % Lymphocytes (%) (Auto) 11 L 12-44 % Monocytes (%) (Auto) 5 0-12 % Eosinophils (%) (Auto) 0 0-10 % Basophils (%) (Auto) 0 0-10 % Neutrophils # (Auto) 12.9 H 1.8-7.8 10^3/uL Lymphocytes # (Auto) 1.6 1.0-4.0 10^3/uL Monocytes # (Auto) 0.7 0.0-1.0 10^3/uL Eosinophils # (Auto) 0.0 0.0-0.3 10^3/uL Basophils # (Auto) 0.0 0.0-0.1 10^3/uL Immature Granulocyte # (Auto) 0.1 0.0-0.1 10^3/uL Neutrophils % (Manual) 77 % Lymphocytes % (Manual) 18 % Monocytes % (Manual) 5 % Hypochromasia SLIGHT Anisocytosis SLIGHT Microcytosis SLIGHT Sodium Level 139 135-145 MMOL/L Potassium Level 3.7 3.6-5.0 MMOL/L Chloride Level 108 H 98-107 MMOL/L Carbon Dioxide Level 20 L 21-32 MMOL/L Anion Gap 11 5-14 MMOL/L Blood Urea Nitrogen 6 L 7-18 MG/DL Creatinine 0.79 0.60-1.30 MG/DL Estimat Glomerular Filtration Rate 101 BUN/Creatinine Ratio 8 Glucose Level 104 70-105 MG/DL Calcium Level 9.3 8.5-10.1 MG/DL Corrected Calcium 9.3 8.5-10.1 MG/DL Total Bilirubin 0.4 0.1-1.0 MG/DL Aspartate Amino Transf (AST/SGOT) 12 5-34 U/L Alanine Aminotransferase (ALT/SGPT) 16 0-55 U/L Alkaline Phosphatase 71 40-136 U/L Total Protein 7.6 6.4-8.2 GM/DL Albumin 4.0 3.2-4.5 GM/DL Lactic Acid Level 0.63 0.50-2.00 MMOL/L (ADALGISA MUÑOZ MD) Micro Results Microbiology 03/11/23 Blood Culture - Preliminary, Resulted No growth (ADALGISA MUÑOZ MD) Vital Signs/I&O 03/11/23 03/11/23 13:29 18:59 Temp 37.1 37.7 Pulse 120 98 Resp 16 16 B/P (MAP) 160/89 (112) 158/94 Pulse Ox 99 96 O2 Delivery Room Air Room Air (ADALGISA MUÑOZ MD) Vital Signs/I&O Capillary Refill : Less Than 3 Seconds (KRISTY NOLEN) Blood Pressure Mean: 112 Departure Communication (PCP) Reviewed previous ER visits, H&P, lab testing. Diagnosed with strep throat yesterday. Patient Was discharged with Keflex. She is allergic to penicillins. She has taken 2 doses of her Keflex. Started having lip swelling tongue swelling, throat swelling today. She states she was having difficulty tolerating secretions last night. Sent from [facility] for further evaluation concern for allergic reaction. Differential diagnosis of strep throat, tonsillar abscess, retropharyngeal abscess, Manjit angina, allergic reaction. On exam she is not hypoxic or evidence of respiratory distress. No stridor. Tolerating secretions. She does have swollen tonsils with exudate without uvula deviation. Slight muffled voice. She was tachycardic but afebrile. Initiated septic work-up with blood cultures, lactic acid, general lab work. CBC showed white blood count of 15. Lactic acid 0.63. She did meet SIRS criteria with tachycardia, elevated white blood count. Sepsis with known infection of strep throat with postive culutre outpatient. She does not appear toxic. She did receive a liter of fluid and a dose of clindamycin 600mg. Improvement of her heart rate to 98 bpm. No appreciation of swelling of her lips or tongue. No evidence of Manjit angina. Due to muffled voice CT scan of the soft tissue neck was ordered. CT scan was negative for tonsillar abscess. No evidence of retropharyngeal abscess. Cervical adenopathy. Tonsillitis noted. Slight narrowing of the oropharynx and nasopharynx. No evidence of swelling or narrowing of the hypopharynx or larynx. Patient was given Solu-Medrol and Benadryl for potential allergic reaction to the medication however I do believe this is more secondary to the swelling from the strep. She continued tolerating secretions here. Patient was discussed with Dr. Luis ENT regarding the results. Recommended taper prednisone 40 mg to 20 mg for 8 days. Start clindamycin 300mg TID. Stop Keflex. Discussed if any worsening symptoms return back to ED. She is able to take oral medication here. She is able to drink here without difficulties. Provided work note for few days. If any worsening symptoms return back to ED. Follow-up your PCP in 2 to 3 days for reevaluation. If any worsening symptoms such as not tolerating secretions, difficulty breathing to return back to ED for further evaluation. Tylenol or ibuprofen for fever. (KRISTY NOLEN) Impression Primary Impression: Tonsillitis Disposition: 01 HOME, SELF-CARE Condition: Stable Departure-Patient Inst. Decision time for Depature: 15:42 (KRISTY NOLEN) Referrals: GARY BANUELOS MD (PCP/Family) Primary Care Physician Patient Instructions: Sore Throat, Adult ED Scripts Prednisone (Prednisone) 20 Mg Tab 40 MG PO DAILY for 8 Days, #12 TAB Prov: KRISTY NOLEN 03/11/23 Clindamycin HCl (Clindamycin HCl) 300 Mg Capsule 300 MG PO TID for 10 Days, #30 CAP Prov: KRISTY NOLEN 03/11/23 Work/School Note: Work Release Form Date Seen in the Emergency Department: March 11, 2023 Return to Work: March 14, 2023 ATTENDING PHYSICIAN NOTE: I was physically present as attending physician in the emergency department during the care of this patient, but I was not directly involved in the decision making or delivery of care for this patient. (ADALGISA MUÑOZ MD) KRISTY NOLEN March 11, 2023 14:13 ADALGISA MUÑOZ MD March 13, 2023 06:27
[2023-03-11] MEDS ORDERED: IOHEXOL 350 MG/ML 100 ML (OMNIPAQUE 350) VIAL IV ONE (14:15)
[2023-03-11] MEDS ORDERED: CLINDAMYCIN 600 MG/50 ML IVPB 50 ML IV ONE (14:15)
[2023-03-11] MEDS ORDERED: diphenhydrAMINE 50 MG/ML INJ (BENADRYL) IVP ONE (14:15)
[2023-03-11] MEDS ORDERED: methylPREDNISolone 125 MG (Solu-MEDROL) VIAL IVP ONE (14:15)
[2023-03-11] MEDS ORDERED: NS 100 ML (IVPB) BAG IV ONE (14:15)
[2023-03-11] MEDS ORDERED: HOLD METFORMIN - RECEIVED CONTRAST 20 ML VIAL IV SCH (14:15)
[2023-03-11 14:25] LABS: BASOPHILS % (AUTO) 0 % (0-10); EOSINOPHILS % (AUTO) 0 % (0-10); HEMATOCRIT 35 % (35-52); HEMOGLOBIN 10.6 g/dL (11.5-16.0); LYMPHOCYTES # (AUTO) 1.6 10^3/uL (1.0-4.0); LYMPHOCYTES % (AUTO) 11 % (12-44); MEAN CORPUSCULAR HEMOGLOBIN 22 pg (25-34); MEAN CORPUSCULAR HGB CONC 31 g/dL (32-36); MEAN CORPUSCULAR VOLUME 73 fL (80-99); MEAN PLATELET VOLUME 9.6 fL (9.0-12.2); MONOCYTES # (AUTO) 0.7 10^3/uL (0.0-1.0); MONOCYTES % (AUTO) 5 % (0-12); NEUTROPHILS # (AUTO) 12.9 10^3/uL (1.8-7.8); NEUTROPHILS % (AUTO) 84 % (42-75); PLATELET COUNT 376 10^3/uL (130-400); WHITE BLOOD COUNT 15.4 10^3/uL (4.3-11.0)
[2023-03-11 14:27] LABS: POTASSIUM 3.7 MMOL/L (3.6-5.0)
[2023-03-11 14:29] LABS: CALCIUM 9.3 MG/DL (8.5-10.1)
[2023-03-11 14:30] LABS: TOTAL PROTEIN 7.6 GM/DL (6.4-8.2)
[2023-03-11 14:32] LABS: BILIRUBIN,TOTAL 0.4 MG/DL (0.1-1.0)
[2023-03-11 14:33] LABS: CREATININE SERUM 0.79 MG/DL (0.60-1.30)
[2023-03-11 14:40] LABS: ANISOCYTOSIS SLIGHT; HYPOCHROMASIA SLIGHT; LYMPHOCYTES % (MANUAL) 18 %; MICROCYTOSIS SLIGHT; MONOCYTES % (MANUAL) 5 %; NEUTROPHILS % (MANUAL) 77 %
--- NOTE | 2023-03-11 14:59 | Diagnostic Imaging Report ---
PROCEDURE: CT neck soft tissue with contrast. TECHNIQUE: Multiple contiguous axial images were obtained through the neck after the administration of contrast. Auto Exposure Controls were utilized during the CT exam to meet ALARA standards for radiation dose reduction. INDICATION: Recent diagnosis of strep throat. Throat swelling. Difficulty breathing. COMPARISON: None. FINDINGS: There is soft tissue fullness and edema involving the adenoids and bilateral palatine tonsils. No drainable fluid collection is seen. There is airway narrowing of the nasopharynx and oropharynx. No airway narrowing is seen in the hypopharynx or larynx. No prevertebral or retropharyngeal fluid collections. The parapharyngeal fat planes are preserved. Bilateral cervical lymphadenopathy is seen. The parotid, submandibular and thyroid gland are unremarkable. The vascular structures the neck demonstrate no evidence of high-grade stenosis on this nondedicated exam. The visualized lung apices are clear. The visualized intracranial contents demonstrate no evidence of pathologic intracranial enhancement or intracranial mass effect. Visualized orbital contents are unremarkable. Fluid level seen in the right maxillary sinus. The mastoids and middle ears are clear. No acute osseous abnormality in the cervical spine. IMPRESSION: 1. Findings consistent with tonsillitis/pharyngitis, likely representing the patient's history of strep throat. Associated airway narrowing is seen in the nasopharynx and oropharynx. No evidence of drainable abscess. Recommend continued followup as indicated. 2. Reactive cervical lymph nodes bilaterally. 3. Acute sinusitis involving the right maxillary sinus. Dictated by: Dictated on workstation # [id number]
[2023-03-11] MEDS ORDERED: NS IV 1000 ML 1,000 ML IV STA (15:41)
[2023-03-11] MEDS ORDERED: CLIN-144 PO (15:44)
[2023-03-11] MEDS ORDERED: PRD20T PO (15:44)
[2023-03-11 18:59] VITALS: BP 158/94
== END 2023-03-11 18:59 | disposition home or self-care (01) ==
LOC: EDUNIT# 13:15 → ER 13:18
DX: J03.90 Acute tonsillitis, unspecified (principal); R00.0 Tachycardia, unspecified; D72.829 Elevated white blood cell count, unspecified; Z88.1 Allergy status to other antibiotic agents
CPT/HCPCS: 36415; 70491; 80053; 83605; 85007; 85027; 87040